=== PATIENT | female | born 1965 | race African-American/Black ===

== ENCOUNTER 2017-04-27 15:45 | Inpatient (IN) ==
[2017-04-27] MEDS ORDERED: NITROGLYCERIN 2% OINT 1 INCH/GM PACK TOP STA (16:32)
[2017-04-27] MEDS ORDERED: ASPIRIN 325 MG TABLET PO STA (16:32)
[2017-04-27] MEDS ORDERED: MORPHINE 2 MG/1 ML SYRINGE IV STA (16:32)
[2017-04-27] MEDS ORDERED: ONDANSETRON 4 MG/2 ML VIAL IV STA (16:32)
[2017-04-27] MEDS ORDERED: FUROSEMIDE 100 MG/10 ML VIAL IV STA (16:32)
[2017-04-27 16:41] LABS: Basophils % 0.6 % (0.0-0.8); Eosinophils # 0.2 10*3/uL (0.0-0.87); Eosinophils % 3.5 % (0.00-10.9); Hematocrit 37.8 VOL% (35.7-47.0); Hemoglobin 12.5 GM/DL (12.0-16.0); Immature Granulocytes % 0.2 %; Immature Granulocytes Absolute 0.01 #; Lymphocytes # 1.9 10*3/uL (1.4-4.0); Lymphocytes % 35.6 % (21.3-54.2); Mean Corpuscular HGB Conc 33.1 GM/DL (32-36); Mean Corpuscular Hemoglobin 29 PG (27-34); Mean Corpuscular Volume 87.9 FL (87-102); Mean Platelet Volume 13.1 FL (9.6-12.0); Monocytes # 0.6 10*3/uL (0.11-0.8); Monocytes % 10.2 % (1.7-12.7); Neutrophils # 2.7 10*3/uL (1.4-7.4); Neutrophils % 49.9 % (38.7-73.9); Platelet Count 148 T/CUMM (130-400); Red Cell Distribution Width 13.1 % (9.3-17.3); White Blood Count 5.4 T/CUMM (4-12)
[2017-04-27] MEDS ORDERED: ONDANSETRON 4 MG/2 ML VIAL ONE (16:49)
[2017-04-27] MEDS ORDERED: FUROSEMIDE 20 MG/2 ML VIAL ONE (16:49)
[2017-04-27] MEDS ORDERED: NITROGLYCERIN 2% OINT 1 INCH/GM PACK TOP ONE (16:49)
[2017-04-27] MEDS ORDERED: ASPIRIN 325 MG TABLET ONE (16:49)
[2017-04-27] MEDS ORDERED: MORPHINE 2 MG/1 ML SYRINGE ONE (16:49)
[2017-04-27] MEDS ORDERED: FUROSEMIDE 40 MG/4 ML VIAL ONE (16:49)
[2017-04-27] MEDS ORDERED: ALBUTEROL 2.5 MG/3 ML NEB RESP TX SCH (17:00)
--- NOTE | 2017-04-27 17:01 | XRay Report ---
History short of breath Comparison 02/28/2016 The heart and vessels are enlarged No consolidative infiltrate is seen. There may be some minimal diffuse pulmonary edema. Impression: Cardiomegaly and vascular congestion with question of minimal interstitial edema PROCEDURE INTERPRETED AT [facility] DEPARTMENT OF RADIOLOGY Final Report Signed by: Dr. Catrina Rojo
[2017-04-27 17:02] LABS: Alanine Aminotransferase 19 U/L (13-56); Albumin 3.3 G/DL (3.4-5.0); Alkaline Phosphatase 95 U/L (45-117); Aspartate Amino Transferase 13 U/L (0-37); Blood Urea Nitrogen 12 MG/DL (7-18); Calcium 8.9 MG/DL (8.5-10.1); Glucose 134 MG/DL (74-106); Magnesium 1.8 MG/DL (1.8-2.4); Osmolality,Calculated 282.3 MOS/KG (273-304); Potassium 3.9 MMOL/L (3.5-5.1); Sodium 141 MMOL/L (136-145); Total Protein 7.6 G/DL (6.4-8.3); Troponin I Only < 0.015 NG/ML (0.00-0.045)
--- NOTE | 2017-04-27 17:17 | Emergency Department Note ---
Carlo Noel Brittany, am scribing for, and in the presence of, Sorin Walters MD 16:17. Selena Noel Charles R, MD, personally performed the services described in this documentation, ascribed by Eunice Matos in my presence, and it is both accurate and complete . Arrival - Arrival Chief Complaint: Shortness of Breath Stated Complaint: asthma,sob,wheezing ED Nursing Triage Note: c/o asthma onset yesterday. +wheezing Mode of Arrival: Ambulatory Limitations: No Limitations Source: Patient, RN Notes Reviewed - History of Present Illness HPI Narrative: Patient is a 52 y/o black female with a history significant for Asthma presenting to the ED with c/o SOB which onset yesterday. Patient reports that she has been having some wheezing and shortness of breath. She denies going outside in the heat today, had just tried to stay in the house and manage current symptoms. She reports that she does take Lasix, but even with this therapy her LLE continues to remain swollen. It is noted that patient has a blood pressure reading of 182/124 mmHg on the monitor. Patient contributes this to not taking her blood pressure medication this morning. Patient has no other complaint/pain in the ED at this time. Patient has a PMHx significant for HTN, Dyslipidemia, Asthma, and Recurrent UTI. Onset (ago): day(s) (1) Consistency: constant Allergies/Adverse Reactions: Allergies Allergy/AdvReac Type Severity Reaction Status Date / Time prednisone Allergy Unknown/Unable Verified 02/28/16 07:41 to obtain Home Medications: Home Medications Medication Instructions Recorded Confirmed Type Albuterol Sulfate [Ventolin HFA] 2 puff INH DAILY 04/27/17 04/27/17 History Allopurinol 300 mg PO DAILY 04/27/17 04/27/17 History Furosemide Tab [Lasix Tab] 40 mg PO DAILY 04/27/17 04/27/17 History Lisinopril 20 mg PO BID 04/27/17 04/27/17 History amLODIPine [Norvasc] 10 mg PO DAILY 04/27/17 04/27/17 History Review of System - Review of System 12 point system: reviewed and no additional remarkable complaints except as stated - Review of System Constitutional: Absent: chills, fever Eyes: Absent: vision change Head/Ears/Nose/Throat: Absent: nasal drainage, sore throat Respiratory: Present: respiratory distress, wheezing Cardiovascular: Absent: chest pain Gastrointestinal: Absent: abdominal pain, nausea, vomiting, diarrhea Genitourinary female: Absent: dysuria, frequency, urgency Musculoskeletal: Absent: arm pain, back pain, leg pain, neck pain Skin: Absent: rash Neurological: Absent: headache Psychiatric: Absent: anxiety, depression Medical,Surgical,& Family Hx - Medical History Cardio: History of: Hypertension Endocrine: History of: Dyslipidemia Respiratory: History of: Asthma Genitourinary: History of: Recurring Urinary Tract Infections - Surgical History Surgical History: noncontributory - Family History Family History: noncontributory - Social History Smoking Status: Never smoker Frequency of Alcohol Use: None Type of Drug Use: None Exam Vital Signs: Vital Signs Temperature 98.9 F 04/27/17 15:49 Pulse Rate 110 H 04/27/17 17:45 Respiratory Rate 18 04/27/17 17:45 Blood Pressure 199/107 04/27/17 15:49 O2 Sat by Pulse Oximetry 100 04/27/17 16:48 - General General appearance: alert, in no apparent distress, obese - Head Head exam: Present: atraumatic, normocephalic, normal inspection - Eye Eye exam: Present: normal appearance, PERRL, EOMI - ENT ENT exam: Present: normal exam, normal oropharynx - Neck Neck exam: Present: normal inspection, full ROM, trachea midline - Chest Chest inspection: Present: normal inspection, symmetric chest wall rise - Respiratory Respiratory exam: Present: accessory muscle use, rales (bilateral), wheezes ( bilateral). Absent: normal lung sounds bilaterally - Cardiovascular Cardiovascular exam: Present: regular rate, normal rhythm, normal heart sounds - Abdominal Exam Abdominal exam: Present: soft, normal bowel sounds. Absent: tenderness - Extremities Exam Extremities exam: Present: pedal edema (+2 edema noted to bilateral lower extremities) - Back Exam Back exam: Present: normal inspection - Neurological Exam Neurological exam: Present: alert, oriented X3, CN II-XII intact. Absent: motor sensory deficit - Psychiatric Psychiatric exam: Present: normal affect, normal mood - Skin Skin exam: Present: warm, dry Course - Reevaluation(s) Reevaluation #1: Patient reevaluated. Patient breathing is still inadequate she has hoarse coarse rhonchi with expiratory wheezing throughout all lung martin there is better airway improvement but still she is in respiratory distress she does not want a Garcia catheter she insists keep going up to the bathroom she understands the dangers of this Time: 18:30 - Consultations Consultation #1: Hospitalist will admit patient Time: 18:29 Results - Labs CBC & BMP: 04/27/17 16:21 04/27/17 16:21 Lab Results: I have reviewed the patients labs Labs: Laboratory Tests 04/27/17 16:21 WBC 5.4 RBC 4.30 Hgb 12.5 Hct 37.8 MCV 87.9 MCH 29 MCHC 33.1 RDW 13.1 Plt Count 148 MPV 13.1 H Neut % (Auto) 49.9 Lymph % (Auto) 35.6 Placer % (Auto) 10.2 Eos % (Auto) 3.5 Baso % (Auto) 0.6 Neut # (Auto) 2.7 Lymph # (Auto) 1.9 Placer # (Auto) 0.6 Eos # (Auto) 0.2 Baso # (Auto) 0.0 Immature Gran % 0.2 Nucleated RBC % 0.0 Immature Gran # 0.01 Nucleated RBCs # 0.00 Laboratory Tests 04/27/17 16:21 D-Dimer, Quantitative 1.3 Laboratory Tests 04/27/17 16:21 Sodium 141 Potassium 3.9 Chloride 104 Carbon Dioxide 30 Anion Gap 10.9 BUN 12 Creatinine 0.80 GFR Calculation 142 BUN/Creatinine Ratio 15.00 Glucose 134 H Calculated Osmolality 282.3 Calcium 8.9 Magnesium 1.8 Total Bilirubin 0.50 AST 13 ALT 19 Alkaline Phosphatase 95 Troponin I < 0.015 Total Protein 7.6 Albumin 3.3 L Globulin 4.3 H Albumin/Globulin Ratio 0.7 L Laboratory Tests 04/27/17 16:21 B-Natriuretic Peptide 66 - Diagnostic Findings Procedure: Chest x-ray: report reviewed by me (Cardiomegaly and vascular congestion with question of minimal interstitial edema.) Critical Care Time Critical Care Time: Yes Total Critical Care Time: 60 Disposition Clinical Impression: Asthma with exacerbation, Acute dyspnea, Morbid obesity Case discussed with: patient, patient's family Disposition: Still a Patient Condition: Guarded Time of Disposition: 18:30
--- NOTE | 2017-04-27 18:24 | CT Report ---
History short of breath and elevated d-dimer 80 cc Omni 350 utilized. Axial images obtained with 2-D multiplanar reconstruction images also stored and interpreted There is a 5 cm mass effect in the left thyroid displacement trachea to the right. There is diffuse enlargement and heterogeneity throughout the thyroid bilaterally. No enlarged mediastinal or hilar nodes are seen. Study is nondiagnostic pulmonary embolus secondary to body habitus and markedly limited contrast bolus. No definite central emboli identified. No pleural effusions present No consolidated infiltrate is seen Impression: 1. Diffuse heterogeneous thyroid enlargement with more focal 5 cm mass effect in the left lobe displacing the trachea to the right 2. Study is nondiagnostic for evaluation of pulmonary embolus. No obvious central emboli seen The CT exam was performed using one or more of the following dose reduction techniques: Automated exposure control, adjustment of the mA and/or kV according to patient size, or use of iterative reconstruction technique. PROCEDURE INTERPRETED AT [facility] DEPARTMENT OF RADIOLOGY Final Report Signed by: Dr. Catrina Rojo
[2017-04-27 18:45] LABS: ABG Base Excess 4.4 MMOL/L (-2.5-2.5); ABG HCO3 30.5 MMOL/L (20-26); ABG Oxygen Saturation 97.2 % (95-100); ABG PCO2 51.7 MM HG (35-48); ABG PH 7.389 (7.35-7.45); ABG PO2 94.2 MM HG (80-95); ABG TCO2 32.1 MMOL/L (23-27); Allen Test Positive
[2017-04-27] MEDS ORDERED: ACETAMINOPHEN 325 MG TABLET PO PRN (19:15)
[2017-04-27] MEDS ORDERED: ALBUTEROL 2.5 MG/3 ML NEB RESP TX PRN (19:15)
[2017-04-27] MEDS ORDERED: ONDANSETRON 4 MG/2 ML VIAL IV PRN (19:15)
[2017-04-27] MEDS ORDERED: MORPHINE 2 MG/1 ML SYRINGE IV PRN (19:15)
[2017-04-27] MEDS ORDERED: hydrALAZINE 20 MG/1 ML VIAL IV PRN (19:31)
--- NOTE | 2017-04-27 19:45 | Hospitalist History & Physical ---
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 A placed on a monitored bed. We will schedule her breathing treatments. We will give her low -dose Solu-Medrol given history of steroid psychosis. She has tolerated 20-40 mg every 12 hours in the past. Continue home meds as appropriate. Schedule her some as needed hydralazine for her hypertension that seems to escalate at times. Will consult Dr. Peterson who is seen her in the past. She has been noncompliant with her CPAP machine has been secondary to losing her tubing. I will order CPAP while she is here. I did find in the old discharge summary her settings. Reevaluate patient in the morning and adjust plans appropriate Current Visit: Yes History of Present Illness Chief complaint: Shortness of breath History of present illness: Ms. Granda is a 52 year old female with past medical history significant for asthma, hypertension, gout, obstructive sleep apnea and morbid obesity who is her normal state of health until approximately 2 days ago. Patient says at that time she started wheezing. She notices it more with exertion. She has a history of asthma. She tried her inhaler with no good results came up to our hospital for further evaluation. Patient was diagnosed with acute exacerbation of her asthma was consulted for admission. She has a history of allergies to prednisone causing hallucinations but has been given IV Solu-Medrol 20 mg to 40 mg every 12 hours without issue. I was consulted to admit her through the emergency room. Home Medications Medication Instructions Recorded Confirmed Type Albuterol Sulfate [Ventolin HFA] 2 puff INH DAILY 04/27/17 04/27/17 History Allopurinol 300 mg PO DAILY 04/27/17 04/27/17 History Furosemide Tab [Lasix Tab] 40 mg PO DAILY 04/27/17 04/27/17 History Lisinopril 20 mg PO BID 04/27/17 04/27/17 History amLODIPine [Norvasc] 10 mg PO DAILY 04/27/17 04/27/17 History Allergies Allergy/AdvReac Type Severity Reaction Status Date / Time prednisone Allergy Unknown/Unable Verified 02/28/16 07:41 to obtain Medical,Surgical,& Family Hx - Medical History Cardio: History of: Hypertension Endocrine: History of: Dyslipidemia Respiratory: History of: Asthma Genitourinary: History of: Recurring Urinary Tract Infections - Surgical History Surgical History: noncontributory (none) - Family History Family History: Reports;: Additional Family History (Asthma) - Social History Smoking Status: Never smoker Frequency of Alcohol Use: None Type of Drug Use: None 12 point system: reviewed and no additional remarkable complaints except as stated Exam - Constitutional Vitals: Period Temp Pulse Resp BP Sys/Ahmadi Pulse Ox Last 24 Hr 98.9 F-98.9 F 96-111 15-26 127-199/69-124 96-100 - General General appearance: alert, in no apparent distress, morbidly obese - Head Head exam: Present: atraumatic, normocephalic, normal inspection - Eye Eye exam: Present: normal appearance, PERRL, EOMI - ENT ENT exam: Present: normal exam, normal oropharynx - Neck Neck exam: Present: Fullness in her neck appreciated, full ROM, trachea midline - Chest Chest inspection: Present: normal inspection, symmetric chest wall rise - Respiratory Respiratory exam: Present: Bilateral wheezing appreciated - Cardiovascular Cardiovascular exam: Present: regular rate, normal rhythm, normal heart sounds - Abdominal Exam Abdominal exam: Present: soft, normal bowel sounds. Absent: tenderness - Extremities Exam Extremities exam: Present: pedal edema (+2 edema noted to bilateral lower extremities) - Back Exam Back exam: Present: normal inspection - Neurological Exam Neurological exam: Present: alert, oriented X3, CN II-XII intact. Absent: motor sensory deficit - Psychiatric Psychiatric exam: Present: normal affect, normal mood - Skin Skin exam: Present: warm, dry Results - Labs CBC & BMP: 04/27/17 16:21 04/27/17 16:21 Labs: Patient had a CT scan performed in our emergency room that showed diffuse thyroid enlargement no obvious pulmonary emboli noted
[2017-04-27] MEDS: ENOXAPARIN 40 MG/0.4 ML SYRINGE SUBCUT SCH (22:33)
[2017-04-27] MEDS: LISINOPRIL 20 MG TABLET PO SCH (22:34)
[2017-04-27] MEDS: methylPREDNISolone SOD SUC 40 MG/1 ML VIAL IV SCH (22:34)
[2017-04-27] MEDS: MONTELUKAST 10 MG TABLET PO SCH (22:34)
[2017-04-28 06:22] LABS: Basophils % 0.2 % (0.0-0.8); Hematocrit 37.3 VOL% (35.7-47.0); Hemoglobin 12.2 GM/DL (12.0-16.0); Immature Granulocytes % 0.5 %; Immature Granulocytes Absolute 0.03 #; Lymphocytes % 15.4 % (21.3-54.2); Mean Corpuscular HGB Conc 32.7 GM/DL (32-36); Mean Corpuscular Hemoglobin 29 PG (27-34); Mean Corpuscular Volume 89.2 FL (87-102); Mean Platelet Volume 12.9 FL (9.6-12.0); Monocytes # 0.2 10*3/uL (0.11-0.8); Monocytes % 3.4 % (1.7-12.7); Neutrophils % 80.5 % (38.7-73.9); Platelet Count 142 T/CUMM (130-400); Red Blood Count 4.18 MC/CUMM (3.8-5.5); Red Cell Distribution Width 13.2 % (9.3-17.3); White Blood Count 6.2 T/CUMM (4-12)
[2017-04-28 06:52] LABS: Calcium 9.3 MG/DL (8.5-10.1); Osmolality,Calculated 286.3 MOS/KG (273-304); Potassium 4.6 MMOL/L (3.5-5.1)
--- NOTE | 2017-04-28 07:49 | Ultrasound Report ---
US thyroid Indication: Enlargement of the thyroid. Comparison: None. Technique: Using transcutaneous probe, routine thyroid ultrasound was performed. Ultrasound images were captured and stored. Findings: The right thyroid lobe measures 5.8 x 3.0 x 2.8 cm. The left thyroid measures 7.4 x 4.3 x 5.6 cm. The isthmus measures approximately 2 cm. Predominantly solid heterogeneous nodule within the left thyroid lobe measures 5.6 x 3.6 x 5.2 cm. This nodule has some punctate echogenic foci as well as predominantly solid in echotexture. Nodule within the thyroid isthmus measures up to 17 mm. Small predominantly subcentimeter thyroid nodules are present within the right thyroid lobe. The largest of these measures slightly larger than a centimeter at 11 mm in greatest dimension. The nodules within the right thyroid lobe are generally hypoechoic to anechoic and demonstrate no distinct calcification. Some of these nodules have suggested intense color flow Impression: 1. Multiple thyroid nodules are demonstrated. The largest lies within the left thyroid lobe. This particular nodules predominant solid with echogenic foci that could reflect small calcifications. This may simply reflect a component of large multinodular goiter, FNA is recommended based on size and punctate echogenicities. 2. Multiple hypoechoic nodules within the right thyroid lobe are small in size, some demonstrating suggestive hyperemic color flow and consideration of nuclear medicine thyroid scan is recommended to exclude hyperfunctioning nodule. 04/28/2017 7:43 AM PROCEDURE INTERPRETED AT [facility] DEPARTMENT OF RADIOLOGY Final Report Signed by: Dr. Amilcar Alanis
--- NOTE | 2017-04-28 08:26 | Hospitalist Progress Note ---
Assessment and Plan - Time spent with patient Time spent with patient: Less than 30 minutes (1) Asthma with exacerbation Status: Acute Assessment and plan: Continuing O2, nebulizer therapy, low-dose corticosteroids, antibiotic therapy. Pulmonary has been consulted to assist with her care. 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 She is on low-dose corticosteroids at this time. Current Visit: Yes (3) Obstructive sleep apnea Status: Chronic Assessment and plan: Continuing her nightly BiPAP. Current Visit: Yes (4) Hypertension Status: Chronic Assessment and plan: Blood pressures been up and down. Will continue current regimen and follow closely. Current Visit: Yes Qualifiers: Hypertension type: essential hypertension Qualified Code(s): I10 - Essential (primary) hypertension (5) Morbid obesity Status: Chronic Assessment and plan: Continuing to encourage increase activity and weight loss. Current Visit: Yes (6) Thyroid enlargement Status: Chronic Current Visit: Yes Hospitalist: Subjective Interval history: Chart reviewed and patient examined. 52-year-old obese black female with a history of asthma, hypertension, gout, obstructive sleep apnea who had a 2 day history of increasing shortness of breath with associated wheezing. She is now been admitted with acute exacerbation. Today she states that she continues with shortness of breath and wheeze. She is tolerating the steroids. She has a cough with minimal clear sputum production. Exam - Constitutional Vitals: Period Temp Pulse Resp BP Sys/Ahmadi Pulse Ox Last 24 Hr 97.0 F-98.9 F 96-111 15-26 98-199/53-124 93-100 General appearance: no acute distress - Head Head exam: Present: normocephalic, atraumatic - Eye Eye exam: Present: EOMI Pupils: Present: KAMINI - ENT ENT exam: Present: normal oropharynx - Neck Neck exam: Present: normal inspection - Respiratory Respiratory exam: Present: other (Distant breath sounds with occasional faint end expiratory wheeze) - Cardiovascular Cardiovascular exam: Present: regular rate and rhythm - GI/Abdominal GI/Abdominal exam: Present: normal bowel sounds, soft. Absent: tenderness, rebound - Extremities Exam Extremities exam: Absent: calf tenderness - Back Exam Back exam: Present: normal inspection - Neurological Exam Neurological exam: Present: alert, oriented X3, CN II-XII intact. Absent: motor sensory deficit - Psychiatric Psychiatric exam: Present: normal affect, normal mood. Absent: agitated, anxious - Skin Skin exam: Present: warm, dry. Absent: erythema Results - Labs CBC & BMP: 04/28/17 06:01 04/28/17 06:00 Lab Results: I have reviewed the past 24 hour labs
[2017-04-28] MEDS ORDERED: DEXTROSE 50% 25 GM/50 ML VIAL IV PRN (08:30)
[2017-04-28] MEDS ORDERED: GLUCAGON 1 MG VIAL IM PRN (08:30)
[2017-04-28] MEDS: methylPREDNISolone SOD SUC 40 MG/1 ML VIAL IV SCH (08:44)
[2017-04-28] MEDS: ALLOPURINOL 300 MG TABLET PO SCH (08:47)
[2017-04-28] MEDS: FUROSEMIDE 40 MG TABLET PO SCH (08:47)
[2017-04-28] MEDS: LISINOPRIL 20 MG TABLET PO SCH ×2 (08:47→20:54)
[2017-04-28] MEDS: amLODIPine 10 MG TABLET PO SCH (08:47)
[2017-04-28] MEDS: PANTOPRAZOLE 40 MG TABLET PO SCH (08:47)
--- NOTE | 2017-04-28 09:14 | Physician Query Form ---
CLICK EDIT DOCUMENT TO SELECT QUERY ANSWER --> OK --> SIGN Luana Alanis RN, CCDS Certified Clinical Janitor Supervisor W) [phone] (f) [phone] [email or web address] PROVIDERS: Make your selection(s) from the choices in EACH section by typing an "x" and enter comments in the comment section. Please use your independent medical judgment in providing your response. This request does not imply that any particular answer is desired or expected. CLINICAL INDICATORS: (Providers should not edit this section) The medical record indicates that the patient was admitted with asthma exacerbation and the patient is on Proventil, Solumedrol. Based on documentation of Asthma, can you please provide further specificity regarding the diagnosis? ( x) Mild intermittent extrinsic asthma with acute exacerbation ( ) Mild persistent extrinsic asthma with acute exacerbation ( ) Moderate persistent extrinsic asthma with acute exacerbation ( ) Severe persistent extrinsic asthma with acute exacerbation ( ) Mild intermittent extrinsic asthma with status asthmaticus ( ) Mild persistent extrinsic asthma with status asthmaticus ( ) Moderate persistent extrinsic asthma with status asthmaticus ( ) Severe intermittent extrinsic asthma with status asthmaticus ( ) Other, please specify: ( ) Clinically unable to determine COMMENTS: PLEASE ALSO DOCUMENT RESPONSE IN PROGRESS NOTES AND/OR DISCHARGE SUMMARY Use of terms such as suspected, likely, or probable (associated with a specific diagnosis that is being evaluated, monitored, or treated as if it exists) are acceptable and can be restated in the discharge summary if not ruled out. MTDD
--- NOTE | 2017-04-28 09:31 | Pulmonology Consult Note ---
Assessment and Plan (1) Asthma with exacerbation Status: Acute Assessment and plan: Today I do not hear any asthma. I will go this long on the steroids as possible as she has had problems with those before. I am not clear whether she has any tracheal compromise by her substernal goiter but I do not think that she does. I do think we need to have an endocrine evaluation Current Visit: Yes (2) Morbid obesity Status: Chronic Assessment and plan: Certainly needs long-term weight loss. Using her CPAP regularly may help her to do that. Current Visit: Yes (3) Thyroid enlargement Status: Chronic Assessment and plan: Large substernal goiter with thyroid nodules. May need needle biopsy. Again I would suggest an endocrine evaluation. May need to go to [place] for that. Current Visit: Yes (4) Obstructive sleep apnea Status: Chronic Assessment and plan: We will ask sleep services to see. Her CPAP machine is not being used. Current Visit: Yes (5) Obesity hypoventilation syndrome Status: Acute Assessment and plan: PCO2 is 51 on room air. This along with her physical findings indicates that she does indeed have obesity hypoventilation syndrome. This is best treated with weight loss and use of her CPAP at night. Also need to be sure she is not hypothyroid Current Visit: Yes History of Present Illness Chief complaint: Cough shortness of breath History of present illness: Ms. Granda is a 52 year old female who has asthma. She developed a cough and congestion going on for about 3 days and she came to the emergency room yesterday and was admitted. She is a non-smoker. She has a long history of asthma. She has been on inhaled steroids in the past. I have seen her in the hospital on several admissions I do not think of seeing her in the clinic. She also has obstructive sleep apnea but says she has lost part of her equipment and has not used it for about 6 months. She has continuously gained weight. She now weighs about 25 pounds more than she did when she was here in 2011. Her weight is up to 345. In addition her x-ray and CT findings indicate a large substernal goiter with nodules. She may need to have a needle biopsy. She may need to be seen by an copper plate lithographer. I have ordered a TSH. Her trachea is somewhat tortuous but does not appear to be extrinsically compressed significantly. Home Medications Medication Instructions Recorded Confirmed Type Albuterol Sulfate [Ventolin HFA] 2 puff INH DAILY 04/27/17 04/27/17 History Furosemide Tab [Lasix Tab] 40 mg PO DAILY 04/27/17 04/27/17 History RX: Allopurinol 300 mg PO DAILY 04/27/17 04/27/17 History RX: Lisinopril 20 mg PO BID 04/27/17 04/27/17 History amLODIPine [Norvasc] 10 mg PO DAILY 04/27/17 04/27/17 History Allergies Allergy/AdvReac Type Severity Reaction Status Date / Time prednisone Allergy Unknown/Unable Verified 02/28/16 07:41 to obtain - Constitutional Constitutional: Present: fatigue, fever(s) - EENT Nose, mouth and throat: Present: nasal congestion - Cardiovascular Cardiovascular: Present: dyspnea, dyspnea on exertion, edema - Respiratory Respiratory: Present: cough, dyspnea, dyspnea on exertion, wheezing Exam (Pulmonay) H&P - Constitutional Vitals: Period Temp Pulse Resp BP Sys/Ahmadi Pulse Ox Last 24 Hr 97.0 F-98.9 F 96-111 15-26 98-199/53-124 93-100 Exam: Patient is alert. Vital signs normal. Weight is 157 kg. Pupils react to light. Throat is clear. Neck is supple. I do not feel a goiter in her neck I think it must all be substernal. Chest reveals prolonged expiratory phase. She does not have any wheezing. Heart normal rate and rhythm no murmurs. Abdomen soft nontender no masses. Unable to palpate abdominal organs due to obesity. Extremities no clubbing or cyanosis. She has a trace of edema. Calves nontender. Medical,Surgical,& Family Hx - Medical History Cardio: History of: Hypertension Endocrine: History of: Dyslipidemia Respiratory: History of: Asthma Genitourinary: History of: Recurring Urinary Tract Infections Gastrointestinal: No history of: Gastrointestinal Bleed - Surgical History Thoracic Surgeries: Patient denies;: Organ Transplant HEENT Surgeries: Patient denies: Tonsilectomy & Adenoidectomy - Family History Family History: Reports;: Family Hypertension, Additional Family History (Asthma ) - Social History Smoking Status: Never smoker Frequency of Alcohol Use: None Type of Drug Use: None Results - Labs CBC & BMP: 04/28/17 06:01 04/28/17 06:00 Lab Results: I have reviewed the past 24 hour labs - Diagnostic Findings Procedure: Chest x-ray: image reviewed by me (No acute infiltrates. Slightly increased interstitial markings may be because of the technique of the film.), CT - chest: image reviewed by me (Large substernal goiter with nodules. No acute infiltrates. No pulmonary emboli)
[2017-04-28] MEDS: INSULIN REGULAR 100 UNIT/ML SUBCUT SCH ×3 (12:29→22:33)
--- NOTE | 2017-04-28 12:49 | Sleep Medicine Consult ---
Assessment and Plan (1) Obstructive sleep apnea Status: Chronic Assessment and plan: This patient has not been seen in sleep clinic for several years. She needs to get compliant with CPAP. Her machine is still functional by her report. We need to get her family to bring her machine up here so that we can check it and get a download. Given her weight gain, I think it would be beneficial to put her on an auto titration CPAP tonight and ascertain best pressure and reset her machine. She will then need follow-up in the sleep clinic after discharge. I expressed the importance of compliance and follow-up in the sleep clinic. Current Visit: Yes (2) Hypertension Status: Chronic Assessment and plan: The prevalence rate for obstructive sleep apnea patients with hypertension is 35 %. That rate can be as high as 80% in patients who require 4 or more medications for blood pressure control. Current Visit: Yes Qualifiers: Hypertension type: essential hypertension Qualified Code(s): I10 - Essential (primary) hypertension (3) Morbid obesity Status: Chronic Assessment and plan: Patient encouraged to continue to work on weight loss thru appropriate dieting and exercise. The combination of weight loss and CPAP therapy for obstructive sleep apnea is better than either therapy alone for obstructive sleep apnea. Current Visit: Yes History of Present Illness Chief complaint: Sleep apnea History of present illness: Ms. Granda is a 52 year old female diagnosed with obstructive sleep apnea in 2007. She had an AHI at that time of 14.5. She underwent CPAP titration and 2012 and was placed on 7 cm of CPAP. She has been noncompliant with her CPAP and has gained significant weight since that time. She has been admitted for asthma exacerbation. She does continue to have problems with snoring and abnormal breathing during sleep. She will awaken from sleep short of breath. She is bothered by nocturia and gets up frequently to go to the bathroom. She has significant daytime fatigue and sleepiness, having an Roosevelt sleepiness score of 14 and a stop bang score of 7. Home Medications Medication Instructions Recorded Confirmed Type Albuterol Sulfate [Ventolin HFA] 2 puff INH DAILY 04/27/17 04/27/17 History Allopurinol 300 mg PO DAILY 04/27/17 04/27/17 History Furosemide Tab [Lasix Tab] 40 mg PO DAILY 04/27/17 04/27/17 History Lisinopril 20 mg PO BID 04/27/17 04/27/17 History amLODIPine [Norvasc] 10 mg PO DAILY 04/27/17 04/27/17 History Allergies Allergy/AdvReac Type Severity Reaction Status Date / Time prednisone Allergy Unknown/Unable Verified 02/28/16 07:41 to obtain Review of systems: Otherwise unremarkable from a sleep medicine standpoint. Exam (Pulmonay) H&P - Constitutional Vitals: Period Temp Pulse Resp BP Sys/Ahmadi Pulse Ox Last 24 Hr 97.0 F-98.9 F 96-111 15-26 98-199/53-124 93-100 Exam: She is alert and responsive in no acute distress. Pupils equal round reactive to light and accommodation. Extraocular movements intact. Oropharynx with a class III Mallampati exam with 1+ tonsillar enlargement. Neck is supple without adenopathy or thyromegaly. No supraclavicular adenopathy is noted. Chest with symmetrical breath sounds with mild expiratory wheeze. Cardiac exam reveals a regular rhythm without murmur or gallop. Abdomen obese nontender without palpable hepatosplenomegaly or mass. Extremities are without clubbing, cyanosis, or edema. Neurologically, she is grossly intact. She moves all extremities with good strength and answers all questions appropriately. Medical,Surgical,& Family Hx - Medical History Cardio: History of: Hypertension Endocrine: History of: Dyslipidemia Respiratory: History of: Asthma Genitourinary: History of: Recurring Urinary Tract Infections Gastrointestinal: No history of: Gastrointestinal Bleed - Surgical History Thoracic Surgeries: Patient denies;: Organ Transplant HEENT Surgeries: Patient denies: Tonsilectomy & Adenoidectomy - Family History Family History: Reports;: Family Hypertension, Additional Family History (Asthma ) - Social History Smoking Status: Never smoker Frequency of Alcohol Use: None Type of Drug Use: None Results - Labs CBC & BMP: 04/28/17 06:01 04/28/17 06:00 Lab Results: I have reviewed the past 24 hour labs
[2017-04-28] MEDS: MONTELUKAST 10 MG TABLET PO SCH (20:54)
[2017-04-28] MEDS: ENOXAPARIN 40 MG/0.4 ML SYRINGE SUBCUT SCH (20:54)
--- NOTE | 2017-04-29 07:40 | Pulmonology Progress Note ---
Pulmonary - PN: Subj Interval history: This 52-year-old lady has asthma and came in with an exacerbation. She has obesity hypoventilation syndrome and obstructive sleep apnea. She is not wheezing. Asthma is well controlled. Can stop steroids. In addition she has a large substernal goiter that needs further evaluation. I would suggest sending her to an cable cutter and swager in [place]. Exam (Progress Note) - Constitutional Vitals: Period Temp Pulse Resp BP Sys/Ahmadi Pulse Ox Last 24 Hr 97.0 F-97.5 F 62-92 16-20 125-161/65-95 90-95 Exam: Patient's alert and oriented. Vital signs are normal. Pupils react to light. Throat is clear. Neck supple no bruits. Chest no wheezing. Slightly prolonged expiratory phase. Heart normal rate rhythm no murmurs. Abdomen obese unable to palpate abdominal organs. Extremities no clubbing cyanosis edema. Calves nontender Results - Labs CBC & BMP: 04/28/17 06:01 04/28/17 06:00 Lab Results: I have reviewed the past 24 hour labs Assessment and Plan (1) Asthma with exacerbation Status: Acute Assessment and plan: Today I do not hear any asthma. I will go this long on the steroids as possible as she has had problems with those before. I am not clear whether she has any tracheal compromise by her substernal goiter but I do not think that she does. I do think we need to have an endocrine evaluation 04/29/2017 no bronchospasm. Will discontinue Solu-Medrol. Current Visit: Yes (2) Morbid obesity Status: Chronic Assessment and plan: Certainly needs long-term weight loss. Using her CPAP regularly may help her to do that. 04/29/2017 again needs long-term weight loss and management of obstructive sleep apnea. Current Visit: Yes (3) Thyroid enlargement Status: Chronic Assessment and plan: Large substernal goiter with thyroid nodules. May need needle biopsy. Again I would suggest an endocrine evaluation. May need to go to [place] for that. Current Visit: Yes (4) Obstructive sleep apnea Status: Chronic Assessment and plan: We will ask sleep services to see. Her CPAP machine is not being used. 04/29/2017 using CPAP at night. Appreciate Dr. Marcelo's input. Current Visit: Yes (5) Obesity hypoventilation syndrome Status: Acute Assessment and plan: PCO2 is 51 on room air. This along with her physical findings indicates that she does indeed have obesity hypoventilation syndrome. This is best treated with weight loss and use of her CPAP at night. Also need to be sure she is not hypothyroid 04/29/2017 again long-term weight loss. Current Visit: Yes
[2017-04-29] MEDS: INSULIN REGULAR 100 UNIT/ML SUBCUT SCH ×4 (07:56→21:41)
[2017-04-29] MEDS: MOMETASONE 220 MCG/PUFF INHALER 14 DOSE INH SCH (08:41)
[2017-04-29] MEDS: ALLOPURINOL 300 MG TABLET PO SCH (08:45)
[2017-04-29] MEDS: FUROSEMIDE 40 MG TABLET PO SCH (08:45)
[2017-04-29] MEDS: LISINOPRIL 20 MG TABLET PO SCH ×2 (08:45→21:27)
[2017-04-29] MEDS: amLODIPine 10 MG TABLET PO SCH (08:45)
[2017-04-29] MEDS: PANTOPRAZOLE 40 MG TABLET PO SCH (08:45)
[2017-04-29] MEDS ORDERED: methylPREDNISolone SOD SUC 40 MG/1 ML VIAL IV SCH (09:00)
--- NOTE | 2017-04-29 11:34 | Hospitalist Progress Note ---
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 Reports that she feels better. Still with some sob with exertion, reports some associated wheezing. Probable discharge tomorrow Exam - Constitutional Vitals: Period Temp Pulse Resp BP Sys/Ahmadi Pulse Ox Last 24 Hr 97.0 F-97.6 F 62-92 16-20 125-161/65-90 90-95 General appearance: over weight - Head Head exam: Present: normocephalic - Eye Eye exam: Present: EOMI Pupils: Present: KAMINI - ENT ENT exam: Present: normal exam - Neck Neck exam: Present: normal inspection - Respiratory Respiratory exam: Present: clear to auscultation bilaterally - Cardiovascular Cardiovascular exam: Present: regular rate and rhythm - GI/Abdominal GI/Abdominal exam: Present: normal bowel sounds, soft. Absent: tenderness, rebound - Extremities Exam Extremities exam: Present: normal inspection - Back Exam Back exam: Present: normal inspection - Neurological Exam Neurological exam: Present: alert, oriented X3 - Psychiatric Psychiatric exam: Present: normal affect, normal mood - Skin Skin exam: Present: warm, intact Results - Labs CBC & BMP: 04/28/17 06:01 04/28/17 06:00
--- NOTE | 2017-04-29 16:42 | Sleep Medicine Progress Note ---
Assessment and Plan (1) Obstructive sleep apnea Status: Chronic Assessment and plan: We will download her CPAP device and have her machine set at best pressure prior to discharge tomorrow. Follow-up will be in sleep clinic. Current Visit: Yes (2) Hypertension Status: Chronic Current Visit: Yes Qualifiers: Hypertension type: essential hypertension Qualified Code(s): I10 - Essential (primary) hypertension (3) Morbid obesity Status: Chronic Current Visit: Yes Sleep Medicine Subjective Interval history: Patient did well with CPAP last night. She was placed on auto titration CPAP and slept with it over 7 hours. She had good control with an average device EPAP of 9.6 cm with an average AHI of 3.9. She did bring her CPAP machine in and we need to get a download from it and see what pressure she is on. She will need follow-up in the sleep clinic after discharge. Exam (Progress Note) - Constitutional Vitals: Period Temp Pulse Resp BP Sys/Ahmadi Pulse Ox Last 24 Hr 96.5 F-98.5 F 74-92 16-20 125-148/65-90 90-95 Results - Labs CBC & BMP: 04/28/17 06:01 04/28/17 06:00 Lab Results: I have reviewed the past 24 hour labs
[2017-04-29] MEDS: ENOXAPARIN 40 MG/0.4 ML SYRINGE SUBCUT SCH (21:27)
[2017-04-29] MEDS: MONTELUKAST 10 MG TABLET PO SCH (21:27)
[2017-04-30] MEDS: INSULIN REGULAR 100 UNIT/ML SUBCUT SCH ×2 (08:02→11:30)
--- NOTE | 2017-04-30 08:25 | Pulmonology Progress Note ---
Pulmonary - PN: Subj Interval history: This 52-year-old lady has asthma and came in with an exacerbation. She has obesity hypoventilation syndrome and obstructive sleep apnea. She is not wheezing. Asthma is well controlled. Can stop steroids. In addition she has a large substernal goiter that needs further evaluation. I would suggest sending her to an admissions evaluator in [place]. 04/30/2017 patient's asthma much improved. Could be discharged on oral medications. She is off prednisone. Needs to be on Asmanex. Needs albuterol for as needed use. Her TSH is still pending. We need to see that before she is discharged as she may need some medication for her thyroid. May well be hypothyroid. In addition she needs to see an admissions evaluator in [place]. Probably needs needle biopsy of thyroid nodule. She has extensive substernal thyroid which may at some point cough respiratory embarrassment by compressing her trachea. Does not appear to be doing that as yet. She also will need follow-up at sleep lab to get her home CPAP treatment managed. Exam (Progress Note) - Constitutional Vitals: Period Temp Pulse Resp BP Sys/Ahmadi Pulse Ox Last 24 Hr 96.5 F-98.5 F 74-84 20-22 119-167/58-93 93-97 Exam: Patient's alert and oriented. Vital signs are normal. Pupils react to light. Throat is clear. Neck supple no bruits. Chest no wheezing. Slightly prolonged expiratory phase. Heart normal rate rhythm no murmurs. Abdomen obese unable to palpate abdominal organs. Extremities no clubbing cyanosis edema. Calves nontender. Overall sounds much better since admission. Results - Labs CBC & BMP: 04/28/17 06:01 04/28/17 06:00 Lab Results: I have reviewed the past 24 hour labs Assessment and Plan (1) Asthma with exacerbation Status: Acute Assessment and plan: Today I do not hear any asthma. I will go this long on the steroids as possible as she has had problems with those before. I am not clear whether she has any tracheal compromise by her substernal goiter but I do not think that she does. I do think we need to have an endocrine evaluation 04/29/2017 no bronchospasm. Will discontinue Solu-Medrol. 04/30/2017 lungs are clear. Does not need steroids. Needs to stay on Asmanex long-term 1 puff daily. Needs albuterol inhaler for as needed use. I will follow in the office. I have not seen her for the last 3 years Current Visit: Yes (2) Morbid obesity Status: Chronic Assessment and plan: Certainly needs long-term weight loss. Using her CPAP regularly may help her to do that. 04/29/2017 again needs long-term weight loss and management of obstructive sleep apnea. Current Visit: Yes (3) Thyroid enlargement Status: Chronic Assessment and plan: Large substernal goiter with thyroid nodules. May need needle biopsy. Again I would suggest an endocrine evaluation. May need to go to [place] for that. 04/30/2017 multinodular goiter which is primarily substernal. Await TSH to decide if she needs thyroid replacement or suppression. Needs appointment with admissions evaluator in [place]. Suggested Dr. Martinez. Current Visit: Yes (4) Obstructive sleep apnea Status: Chronic Assessment and plan: We will ask sleep services to see. Her CPAP machine is not being used. 04/29/2017 using CPAP at night. Appreciate Dr. Marcelo's input. 04/30/2017 Dr. Marcelo will follow in the sleep clinic. Current Visit: Yes (5) Obesity hypoventilation syndrome Status: Acute Assessment and plan: PCO2 is 51 on room air. This along with her physical findings indicates that she does indeed have obesity hypoventilation syndrome. This is best treated with weight loss and use of her CPAP at night. Also need to be sure she is not hypothyroid 04/29/2017 again long-term weight loss. 04/30/2017 weight loss and use of CPAP or BiPAP at bedtime are primary measures for this. Current Visit: Yes
--- NOTE | 2017-04-30 08:36 | Discharge Summary ---
<Anton Rosas - Last Filed: 04/30/17 08:14> Hospital Course - Hospital Course Hospital Course: Ms. Granda is a 52 yr old morbidly obese black female with a history of asthma , MERI, htn, and gout that presented to the ED on 04/27 with complaints of wheezing and shortness of breath with exertion. Pt. reported using her inhaler but to no avail. She came to the ED for further evaluation. She was found to be in acute asthma exacerbation and was admitted for treatment. Pt. has an allergy to some steroids and reported prednisone causing hallucinations so the administration of IV solu-medrol was monitored closely. In addition to the steroid treatment, patient also received breathing treatment. Because of her problems with MERI and asthma, both pulmonary and Sleep Center were consulted. Dr. Marcelo evaluated the patient for MERI. Pt. was noted to be noncompliant with CPAP and had not been seen for years in clinic. Pt. was started on cpap in hospital and settings were titrated. She tolerated them well. Pt. began to feel better. Steroids were discontinued and oxygen was weaned. On CT chest patient was incidentally noted to have diffuse thyroid enlargement with displacement of her trachea. Thyroid ultrasound was performed which demonstrated multiple thyroid nodules. Her tsh and free t4 are both within normal limits. She will need to follow-up with an sales exhibitor outpatient. She will also follow-up with Dr. Peterson outpatient. Today, patient is stable for discharge. Pt. has been instructed to follow up with sleep center after discharge. Specialty Discharge - Follow Up or Referrals Follow up with: Brennon Peterson MD [Physician] - 06/29/17 12:30 pm Discharge Plan - Discharge Data Disposition: Disch To Home/Self Care - Discharge Medications New Mometasone Inhaler [Asmanex HFA 200 mcg] 220 mcg INH DAILY #1 inhaler Montelukast Tab [Singulair Tab] 10 mg PO BEDTIME #30 tablet Continue Furosemide Tab [Lasix Tab] 40 mg PO DAILY Allopurinol 300 mg PO DAILY amLODIPine [Norvasc] 10 mg PO DAILY Lisinopril 20 mg PO BID Albuterol Sulfate [Ventolin HFA] 2 puff INH Q4H PRN PRN Reason: shortness of breath - Follow Up or Referral Follow Up: Brennon Peterson MD [Physician] - 06/29/17 12:30 pm - Forms/Instructions Exam - Constitutional Vitals: Period Temp Pulse Resp BP Sys/Ahmadi Pulse Ox Last 24 Hr 96.5 F-98.5 F 74-84 18-22 119-167/58-93 93-97 Discharge Results Procedures and tests throughout hospitalization: Pending Orders 04/27/17 16:54 Blood Culture Stat 04/28/17 06:00 TSH, Sensitive, S Routine Labs on day of discharge: Labs from last 24 hours 04/30/17 04/30/17 04/29/17 09:51 07:19 21:37 POC Glucose 117 H 137 H Free T4 1.16 TSH 3rd Generation 1.440 04/29/17 04/29/17 15:52 11:15 POC Glucose 173 H 106 Free T4 TSH 3rd Generation Preliminary micro results at discharge 04/27/17 16:54 Blood Culture - Preliminary Blood No growth at 1 day 04/27/17 16:54 Blood Culture - Preliminary Blood No growth at 1 day DS: Provider Date of admission: 04/27/17 19:16 Primary care physician: . No PCP Attending physician on admission: Dat Doan MD Consults: 04/27/17 19:15 Consult to Physician [CONS] Routine Comment: Consulting Provider: Consult to Specialist Group: Pulmonology Consult to Physician [CONS] Routine Comment: patient known to you Consulting Provider: Brennon Peterson 04/28/17 09:35 Consult to Sleep Center [CONS] Routine Reason for Sleep Center: Sleep Center Physician Consult Comment: MERI, OHS, noncompliant with CPAP Discharging clinician: Anton Rosas NP <Tanvir Mercado - Last Filed: 04/30/17 11:14> Hospital Course - Time spent with patient Time with patient DS: Greater than 30 minutes (35) Diagnosis - Discharge Diagnosis (1) Asthma with exacerbation Status: Resolved (2) Morbid obesity Status: Chronic (3) Thyroid enlargement Status: Acute (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 (5) Obstructive sleep apnea Status: Chronic Discharge Plan - Discharge Data Condition at Discharge: Stable Discharge Diet: advance to your usual diet Activity: increase activity as tolerated Hygiene: no restrictions Weight Bearing at Discharge: weight bear as tolerated Driving: no restrictions Contact your physician if you experience:: fever over 101, Shortness of breath Exam - Constitutional General appearance: over weight - Head Head exam: Present: normocephalic, atraumatic - Eye Eye exam: Present: EOMI Pupils: Present: KAMINI - ENT ENT exam: Present: normal exam - Neck Neck exam: Present: normal inspection - Respiratory Respiratory exam: Present: clear to auscultation bilaterally - Cardiovascular Cardiovascular exam: Present: regular rate and rhythm - GI/Abdominal GI/Abdominal exam: Present: normal bowel sounds - Extremities Exam Extremities exam: Present: normal inspection - Back Exam Back exam: Present: normal inspection - Neurological Exam Neurological exam: Present: alert, oriented X3 - Psychiatric Psychiatric exam: Present: normal affect, normal mood - Skin Skin exam: Present: warm, intact
[2017-04-30] MEDS: ALLOPURINOL 300 MG TABLET PO SCH (09:31)
[2017-04-30] MEDS: LISINOPRIL 20 MG TABLET PO SCH (09:31)
[2017-04-30] MEDS: amLODIPine 10 MG TABLET PO SCH (09:31)
[2017-04-30] MEDS: MOMETASONE 220 MCG/PUFF INHALER 14 DOSE INH SCH (09:31)
[2017-04-30] MEDS: PANTOPRAZOLE 40 MG TABLET PO SCH (09:31)
[2017-04-30] MEDS: FUROSEMIDE 40 MG TABLET PO SCH (09:31)
[2017-04-30 10:39] LABS: Free T4 (Free Thyroxine) 1.16 NG/DL (0.76-1.46); Thyroid Stimulating Hormone 1.44 uIU/ml (0.358-3.74)
--- NOTE | 2017-04-30 13:01 | Sleep Medicine Progress Note ---
Assessment and Plan (1) Obstructive sleep apnea Status: Chronic Assessment and plan: Patient will be set up for reevaluation of her sleep apnea and follow-up will be in sleep clinic. Thank you for sleep consult. Current Visit: Yes (2) Hypertension Status: Chronic Current Visit: Yes Qualifiers: Hypertension type: essential hypertension Qualified Code(s): I10 - Essential (primary) hypertension (3) Morbid obesity Status: Chronic Current Visit: Yes Sleep Medicine Subjective Interval history: Patient slept only about 2 hours last night with CPAP. She did okay with it when she used it. She will be set up for reevaluation of her obstructive sleep apnea and sleep clinic. Exam (Progress Note) - Constitutional Vitals: Period Temp Pulse Resp BP Sys/Ahmadi Pulse Ox Last 24 Hr 96.5 F-97.8 F 74-84 18-22 119-167/58-93 94-97 Exam: She is alert and responsive in no acute distress. She has a class III Mallampati exam with 1+ tonsillar enlargement. Chest with good air movement and no focal wheeze, rhonchi, or rales. Cardiac exam reveals a regular rhythm without murmur or gallop. Abdomen obese nontender extremities with trace edema. Results - Labs CBC & BMP: 04/28/17 06:01 04/28/17 06:00 Lab Results: I have reviewed the past 24 hour labs Specialty Discharge - Follow Up or Referrals Follow up with: Brennon Peterson MD [Physician] - 06/29/17 12:30 pm
[2017-04-30 13:43] VITALS: BP 135/74
== END 2017-04-30 14:50 | disposition home or self-care (01) | DRG 202 ==
LOC: N.ED 15:45 → N.EDINP 19:16 → SUATTDRO 19:16 → N.2E 20:52
PROVIDERS: ADMIT Internal Medicine; ATTEND Internal Medicine

== ENCOUNTER 2017-08-15 07:00 | Inpatient (IN) ==
[2017-08-15] MEDS ORDERED: methylPREDNISolone SOD SUC 40 MG/1 ML VIAL IV STA (07:26)
[2017-08-15] MEDS ORDERED: LEVOFLOXACIN INJ 750 MG in PREMIX 1 EACH IV STA (07:26)
[2017-08-15] MEDS ORDERED: ALBUTEROL 2.5 MG/3 ML NEB RESP TX STA (07:26)
[2017-08-15] MEDS ORDERED: methylPREDNISolone SOD SUC 125 MG/2 ML VIAL ONE (07:30)
[2017-08-15] MEDS ORDERED: LEVOFLOXACIN INJ 150 ML IV ONE (07:42)
[2017-08-15 07:55] LABS: Basophils % 0.3 % (0.0-0.8); Eosinophils % 0.5 % (0.00-10.9); Hematocrit 39.5 VOL% (35.7-47.0); Hemoglobin 13.1 GM/DL (12.0-16.0); Immature Granulocytes % 0.3 %; Immature Granulocytes Absolute 0.01 #; Lymphocytes # 1.3 10*3/uL (1.4-4.0); Lymphocytes % 33.7 % (21.3-54.2); Mean Corpuscular HGB Conc 33.2 GM/DL (32-36); Mean Corpuscular Hemoglobin 29 PG (27-34); Mean Corpuscular Volume 88.6 FL (87-102); Mean Platelet Volume 12.7 FL (9.6-12.0); Monocytes # 0.5 10*3/uL (0.11-0.8); Monocytes % 12.8 % (1.7-12.7); Neutrophils % 52.4 % (38.7-73.9); Platelet Count 154 T/CUMM (130-400); Red Blood Count 4.46 MC/CUMM (3.8-5.5); Red Cell Distribution Width 13.1 % (9.3-17.3); White Blood Count 3.8 T/CUMM (4-12)
[2017-08-15 08:16] LABS: Alanine Aminotransferase 16 U/L (13-56); Albumin 3.4 G/DL (3.4-5.0); Alkaline Phosphatase 82 U/L (45-117); Aspartate Amino Transferase 23 U/L (0-37); Blood Urea Nitrogen 15 MG/DL (7-18); Calcium 8.7 MG/DL (8.5-10.1); Glucose 113 MG/DL (74-106); Osmolality,Calculated 282.3 MOS/KG (273-304); Potassium 3.7 MMOL/L (3.5-5.1); Sodium 141 MMOL/L (136-145); Total Protein 8.1 G/DL (6.4-8.3); Troponin I Only < 0.015 NG/ML (0.00-0.045)
[2017-08-15] MEDS ORDERED: ALBUTEROL/IPRATROPIUM 3 ML NEB RESP TX STA (09:16)
[2017-08-15] MEDS: TERBUTALINE 1 MG/1 ML VIAL SUBCUT SCH ×2 (09:30→11:13)
[2017-08-15] MEDS ORDERED: TERBUTALINE 1 MG/1 ML VIAL SUBCUT ONE (09:40)
[2017-08-15] MEDS ORDERED: ZALEPLON 5 MG CAPSULE PO PRN (10:18)
[2017-08-15] MEDS ORDERED: ONDANSETRON 4 MG/2 ML VIAL IV PRN (10:18)
[2017-08-15] MEDS: DEXTROSE 5% NACL 0.9% 1,000 ML IV SCH ×2 (11:00→18:27)
[2017-08-15] MEDS: LISINOPRIL 20 MG TABLET PO SCH ×2 (11:04→20:18)
[2017-08-15] MEDS: ALLOPURINOL 100 MG TABLET PO SCH (11:04)
[2017-08-15] MEDS: amLODIPine 10 MG TABLET PO SCH (11:04)
[2017-08-15] MEDS: PANTOPRAZOLE 40 MG TABLET PO SCH (11:05)
[2017-08-15] MEDS: DOCUSATE SODIUM 100 MG CAPSULE PO PRN (11:05)
[2017-08-15] MEDS: ALBUTEROL 1.25 MG/3 ML NEB RESP TX SCH ×3 (11:47→19:11)
[2017-08-15] MEDS: ENOXAPARIN 40 MG/0.4 ML SYRINGE SUBCUT SCH (12:06)
[2017-08-15] MEDS: AZITHROMYCIN INJ 500 MG in SODIUM CHLORIDE 0.9% 250 ML IV SCH (12:06)
[2017-08-15] MEDS: methylPREDNISolone SOD SUC 40 MG/1 ML VIAL IV SCH (15:51)
[2017-08-15] MEDS: MONTELUKAST 10 MG TABLET PO SCH (20:18)
[2017-08-16] MEDS: methylPREDNISolone SOD SUC 40 MG/1 ML VIAL IV SCH ×3 (00:11→20:49)
[2017-08-16] MEDS: ALBUTEROL 1.25 MG/3 ML NEB RESP TX SCH ×6 (00:20→19:50)
[2017-08-16] MEDS: DEXTROSE 5% NACL 0.9% 1,000 ML IV SCH (05:19)
[2017-08-16 08:08] LABS: Calcium 8.9 MG/DL (8.5-10.1); Osmolality,Calculated 286.4 MOS/KG (273-304); Potassium 4.2 MMOL/L (3.5-5.1)
[2017-08-16] MEDS: ALLOPURINOL 100 MG TABLET PO SCH (09:51)
[2017-08-16] MEDS: LISINOPRIL 20 MG TABLET PO SCH ×2 (09:51→20:49)
[2017-08-16] MEDS: amLODIPine 10 MG TABLET PO SCH (09:51)
[2017-08-16] MEDS: PANTOPRAZOLE 40 MG TABLET PO SCH (09:51)
[2017-08-16] MEDS: LEVOFLOXACIN INJ 750 MG in PREMIX 1 EACH IV SCH (09:52)
[2017-08-16] MEDS: ENOXAPARIN 40 MG/0.4 ML SYRINGE SUBCUT SCH (09:52)
[2017-08-16 11:16] LABS: Free T4 (Free Thyroxine) 1.43 NG/DL (0.76-1.46); Thyroid Stimulating Hormone 0.133 uIU/ml (0.358-3.74)
[2017-08-16] MEDS: AZITHROMYCIN INJ 500 MG in SODIUM CHLORIDE 0.9% 250 ML IV SCH (14:15)
[2017-08-16] MEDS: MONTELUKAST 10 MG TABLET PO SCH (20:49)
[2017-08-16] MEDS ORDERED: DILTIAZEM 60 MG TABLET PO SCH (21:00)
[2017-08-17] MEDS: ALBUTEROL 1.25 MG/3 ML NEB RESP TX SCH ×7 (00:02→23:10)
[2017-08-17] MEDS: DEXTROSE 5% NACL 0.9% 1,000 ML IV SCH (01:34)
[2017-08-17] MEDS: ENOXAPARIN 40 MG/0.4 ML SYRINGE SUBCUT SCH (10:28)
[2017-08-17] MEDS: PANTOPRAZOLE 40 MG TABLET PO SCH (10:29)
[2017-08-17] MEDS: DOCUSATE SODIUM 100 MG CAPSULE PO PRN (10:29)
[2017-08-17] MEDS: LISINOPRIL 20 MG TABLET PO SCH ×2 (10:29→21:44)
[2017-08-17] MEDS: ALLOPURINOL 100 MG TABLET PO SCH (10:30)
[2017-08-17] MEDS: LEVOFLOXACIN INJ 750 MG in PREMIX 1 EACH IV SCH (10:32)
[2017-08-17] MEDS: amLODIPine 10 MG TABLET PO SCH (10:32)
[2017-08-17] MEDS: methylPREDNISolone SOD SUC 40 MG/1 ML VIAL IV SCH ×2 (10:54→21:45)
[2017-08-17] MEDS: CARVEDILOL 12.5 MG TABLET PO SCH ×2 (12:18→17:37)
[2017-08-17] MEDS: BUDESONIDE/FORMOTEROL 160-4.5 INHALER 6 GM INH SCH ×2 (17:44→21:52)
[2017-08-17] MEDS: MONTELUKAST 10 MG TABLET PO SCH (21:44)
[2017-08-18] MEDS: ALBUTEROL 1.25 MG/3 ML NEB RESP TX SCH ×7 (03:00→23:06)
[2017-08-18] MEDS: CARVEDILOL 12.5 MG TABLET PO SCH ×2 (09:18→17:00)
[2017-08-18] MEDS: ENOXAPARIN 40 MG/0.4 ML SYRINGE SUBCUT SCH (09:19)
[2017-08-18] MEDS: LISINOPRIL 20 MG TABLET PO SCH ×2 (09:19→21:24)
[2017-08-18] MEDS: LEVOFLOXACIN INJ 750 MG in PREMIX 1 EACH IV SCH (09:19)
[2017-08-18] MEDS: amLODIPine 10 MG TABLET PO SCH (09:19)
[2017-08-18] MEDS: PANTOPRAZOLE 40 MG TABLET PO SCH (09:20)
[2017-08-18] MEDS: ALLOPURINOL 100 MG TABLET PO SCH (09:20)
[2017-08-18] MEDS: BUDESONIDE/FORMOTEROL 160-4.5 INHALER 6 GM INH SCH ×2 (10:46→21:24)
[2017-08-18] MEDS ORDERED: methylPREDNISolone SOD SUC 40 MG/1 ML VIAL IV SCH (21:00)
[2017-08-18] MEDS: MONTELUKAST 10 MG TABLET PO SCH (21:24)
[2017-08-19] MEDS: ALBUTEROL 1.25 MG/3 ML NEB RESP TX SCH ×2 (07:25→12:19)
[2017-08-19 08:35] VITALS: BP 149/83
[2017-08-19] MEDS ORDERED: LEVOFLOXACIN 500 MG TABLET PO SCH (09:00)
[2017-08-19] MEDS: ENOXAPARIN 40 MG/0.4 ML SYRINGE SUBCUT SCH (09:37)
[2017-08-19] MEDS: CARVEDILOL 12.5 MG TABLET PO SCH (09:37)
[2017-08-19] MEDS: amLODIPine 10 MG TABLET PO SCH (09:37)
[2017-08-19] MEDS: PANTOPRAZOLE 40 MG TABLET PO SCH (09:38)
[2017-08-19] MEDS: BUDESONIDE/FORMOTEROL 160-4.5 INHALER 6 GM INH SCH (09:38)
[2017-08-19] MEDS: predniSONE 20 MG TABLET PO SCH ×3 (09:38→10:25)
[2017-08-19] MEDS: LISINOPRIL 20 MG TABLET PO SCH (09:38)
[2017-08-19] MEDS: ALLOPURINOL 100 MG TABLET PO SCH (09:39)
== END 2017-08-19 13:00 | disposition home or self-care (01) | DRG 194 ==
LOC: N.ED 07:00 → N.EDINP 09:45 → SUATTDRO 09:45 → N.EDINP 10:39 → N.2E 10:48
PROVIDERS: ADMIT Internal Medicine Cardiovascular Disease; ATTEND Internal Medicine

== ENCOUNTER 2019-12-22 12:08 | Observation (INO) ==
[2019-12-22] MEDS ORDERED: ALBUTEROL/IPRATROPIUM 3 ML NEB RESP TX STA (13:04)
[2019-12-22] MEDS ORDERED: FUROSEMIDE 40 MG/4 ML VIAL IV STA (14:18)
[2019-12-22 14:26] LABS: Basophils % 0.2 % (0.0-0.8); Eosinophils # 0.1 10*3/uL (0.0-0.87); Hemoglobin 12.5 GM/DL (12.0-16.0); Immature Granulocytes % 0.4 %; Immature Granulocytes Absolute 0.02 #; Lymphocytes # 1.2 10*3/uL (1.4-4.0); Lymphocytes % 22.8 % (21.3-54.2); Mean Corpuscular HGB Conc 31.3 GM/DL (32-36); Mean Corpuscular Volume 92.8 FL (87-102); Mean Platelet Volume 12.6 FL (9.6-12.0); Monocytes % 9.6 % (1.7-12.7); Platelet Count 179 T/CUMM (130-400); Red Blood Count 4.31 MC/CUMM (3.8-5.5); White Blood Count 5.1 T/CUMM (4-12)
[2019-12-22 14:35] LABS: Calcium 9.2 MG/DL (8.5-10.1); Osmolality,Calculated 276.5 MOS/KG (273-304)
[2019-12-22] MEDS ORDERED: hydrALAZINE 20 MG/1 ML VIAL IV STA (15:18)
[2019-12-22] MEDS ORDERED: ONDANSETRON 4 MG/2 ML VIAL IV PRN (15:40)
[2019-12-22] MEDS ORDERED: MAGNESIUM SULF RIDER 2 GM in PREMIX 1 EACH IV PRN (15:40)
[2019-12-22] MEDS ORDERED: MAGNESIUM SULF RIDER 4 GM in PREMIX 1 EACH IV PRN (15:40)
[2019-12-22] MEDS: ENOXAPARIN 40 MG/0.4 ML SYRINGE SUBCUT SCH (16:40)
[2019-12-22] MEDS ORDERED: amLODIPine 5 MG TABLET PO ONE (17:12)
[2019-12-22] MEDS ORDERED: hydrALAZINE 20 MG/1 ML VIAL IV PRN (17:12)
[2019-12-22] MEDS: ALBUTEROL/IPRATROPIUM 3 ML NEB RESP TX SCH (19:52)
[2019-12-22] MEDS: ACETAMINOPHEN 325 MG TABLET PO PRN (21:25)
[2019-12-22] MEDS: BUDESONIDE/FORMOTEROL 160-4.5 INHALER 6 GM INH SCH (21:26)
[2019-12-22] MEDS: lisinopriL 20 MG TABLET PO SCH (21:26)
[2019-12-23] MEDS: ALBUTEROL/IPRATROPIUM 3 ML NEB RESP TX SCH ×4 (01:09→20:02)
[2019-12-23] MEDS: ACETAMINOPHEN 325 MG TABLET PO PRN ×3 (04:53→20:14)
[2019-12-23 06:56] LABS: Basophils % 0.2 % (0.0-0.8); Eosinophils % 0.9 % (0.00-10.9); Hematocrit 37.5 VOL% (35.7-47.0); Hemoglobin 11.6 GM/DL (12.0-16.0); Immature Granulocytes % 0.2 %; Immature Granulocytes Absolute 0.01 #; Lymphocytes # 1.2 10*3/uL (1.4-4.0); Lymphocytes % 27.2 % (21.3-54.2); Mean Corpuscular HGB Conc 30.9 GM/DL (32-36); Mean Corpuscular Volume 93.3 FL (87-102); Mean Platelet Volume 12.2 FL (9.6-12.0); Monocytes % 11.5 % (1.7-12.7); Platelet Count 154 T/CUMM (130-400); Red Blood Count 4.02 MC/CUMM (3.8-5.5); White Blood Count 4.3 T/CUMM (4-12)
[2019-12-23 07:26] LABS: Albumin 3.2 G/DL (3.4-5.0); Bilirubin,Total 1.4 MG/DL (0.2-1.0); Calcium 8.9 MG/DL (8.5-10.1); Osmolality,Calculated 280.3 MOS/KG (273-304); Total Protein 7.5 G/DL (6.4-8.3)
[2019-12-23] MEDS: lisinopriL 20 MG TABLET PO SCH ×2 (09:37→20:15)
[2019-12-23] MEDS: ASPIRIN CHEW 81 MG TABLET PO SCH (09:37)
[2019-12-23] MEDS: PANTOPRAZOLE 40 MG TABLET PO SCH (09:37)
[2019-12-23] MEDS: amLODIPine 10 MG TABLET PO SCH (09:37)
[2019-12-23] MEDS: FUROSEMIDE 40 MG/4 ML VIAL IV SCH ×2 (09:37→15:26)
[2019-12-23] MEDS: BUDESONIDE/FORMOTEROL 160-4.5 INHALER 6 GM INH SCH ×2 (09:38→20:15)
[2019-12-23] MEDS: POTASSIUM CHLORIDE 20 MEQ TABLET PO PRN ×3 (10:58→17:44)
[2019-12-23] MEDS: ENOXAPARIN 40 MG/0.4 ML SYRINGE SUBCUT SCH (15:27)
[2019-12-23] MEDS: carvediloL 3.125 MG TABLET PO SCH (20:15)
[2019-12-24] MEDS: ALBUTEROL/IPRATROPIUM 3 ML NEB RESP TX SCH ×2 (01:55→07:24)
[2019-12-24 06:49] LABS: Basophils % 0.5 % (0.0-0.8); Eosinophils # 0.1 10*3/uL (0.0-0.87); Eosinophils % 2.8 % (0.00-10.9); Hematocrit 38.7 VOL% (35.7-47.0); Hemoglobin 12.2 GM/DL (12.0-16.0); Immature Granulocytes % 0.2 %; Immature Granulocytes Absolute 0.01 #; Lymphocytes # 1.6 10*3/uL (1.4-4.0); Lymphocytes % 36.8 % (21.3-54.2); Mean Corpuscular HGB Conc 31.5 GM/DL (32-36); Mean Corpuscular Volume 92.4 FL (87-102); Mean Platelet Volume 12.3 FL (9.6-12.0); Monocytes % 11.1 % (1.7-12.7); Neutrophils % 48.6 % (38.7-73.9); Platelet Count 159 T/CUMM (130-400); Red Blood Count 4.19 MC/CUMM (3.8-5.5); Red Cell Distribution Width 13.1 % (9.3-17.3); White Blood Count 4.3 T/CUMM (4-12)
[2019-12-24 07:19] LABS: Calcium 9.1 MG/DL (8.5-10.1); Osmolality,Calculated 276.5 MOS/KG (273-304)
[2019-12-24] MEDS: ASPIRIN CHEW 81 MG TABLET PO SCH (08:19)
[2019-12-24] MEDS: carvediloL 3.125 MG TABLET PO SCH (08:19)
[2019-12-24] MEDS: amLODIPine 10 MG TABLET PO SCH (08:19)
[2019-12-24] MEDS: PANTOPRAZOLE 40 MG TABLET PO SCH (08:19)
[2019-12-24] MEDS: lisinopriL 20 MG TABLET PO SCH (08:19)
[2019-12-24] MEDS: BUDESONIDE/FORMOTEROL 160-4.5 INHALER 6 GM INH SCH (08:19)
[2019-12-24] MEDS ORDERED: FUROSEMIDE 20 MG TABLET PO SCH (09:00)
[2019-12-24 10:23] VITALS: BP 155/91
== END 2019-12-24 12:35 | disposition home or self-care (01) ==
LOC: N.EDINP 12:08 → N.ED 12:08 → SUATTDRO 16:08 → N.EDINP 16:57 → N.2E 17:10
PROVIDERS: ADMIT Internal Medicine; ATTEND Internal Medicine

== ENCOUNTER 2021-01-17 13:49 | Observation (INO) ==
[2021-01-17] MEDS ORDERED: methylPREDNISolone SOD SUC 125 MG/2 ML VIAL IV STA (14:04)
[2021-01-17] MEDS ORDERED: ALBUTEROL/IPRATROPIUM 3 ML NEB RESP TX STA (14:04)
[2021-01-17] MEDS ORDERED: FUROSEMIDE 100 MG/10 ML VIAL IV STA (14:59)
[2021-01-17 15:52] LABS: Basophils % 0.4 % (0.0-0.8); Eosinophils # 0.1 10*3/uL (0.0-0.87); Eosinophils % 1.8 % (0.00-10.9); Hematocrit 41.1 VOL% (35.7-47.0); Hemoglobin 12.9 GM/DL (12.0-16.0); Immature Granulocytes % 0.2 %; Immature Granulocytes Absolute 0.01 #; Lymphocytes % 21.3 % (21.3-54.2); Mean Corpuscular HGB Conc 31.4 GM/DL (32-36); Mean Corpuscular Volume 91.5 FL (87-102); Monocytes % 7.4 % (1.7-12.7); Neutrophils % 68.9 % (38.7-73.9); Platelet Count 164 T/CUMM (130-400); Red Blood Count 4.49 MC/CUMM (3.8-5.5); Red Cell Distribution Width 13.3 % (9.3-17.3); White Blood Count 4.9 T/CUMM (4-12)
[2021-01-17 16:12] LABS: Albumin 3.3 G/DL (3.4-5.0); Bilirubin,Total 0.8 MG/DL (0.2-1.0); Osmolality,Calculated 280.3 MOS/KG (273-304); Potassium 3.9 MMOL/L (3.5-5.1); Total Protein 7.9 G/DL (6.4-8.2)
[2021-01-17] MEDS ORDERED: hydrALAZINE 20 MG/1 ML VIAL IV STA (16:31)
[2021-01-17] MEDS ORDERED: DOCUSATE SODIUM 100 MG CAPSULE PO PRN (17:12)
[2021-01-17] MEDS ORDERED: DEXTROSE 50% 25 GM/50 ML VIAL IV PRN (17:12)
[2021-01-17] MEDS ORDERED: hydrALAZINE 20 MG/1 ML VIAL IV PRN ×2 (17:12→18:47)
[2021-01-17] MEDS ORDERED: GLUCAGON 1 MG VIAL IM PRN (17:12)
[2021-01-17] MEDS ORDERED: ONDANSETRON 4 MG/2 ML VIAL IV PRN (17:12)
[2021-01-17] MEDS ORDERED: PNEUMOCOCCAL VACCINE (23 VALENT) 0.5 ML VIAL IM ONE (19:11)
[2021-01-17] MEDS: ALBUTEROL 2.5 MG/3 ML NEB RESP TX SCH (19:20)
[2021-01-17] MEDS ORDERED: MORPHINE 4 MG/1 ML VIAL IV PRN (19:29)
[2021-01-17] MEDS: carvediloL 12.5 MG TABLET PO SCH (19:52)
[2021-01-17] MEDS: ENOXAPARIN 150 MG/ML SYRINGE SUBCUT SCH (20:01)
[2021-01-17] MEDS: lisinopriL 20 MG TABLET PO SCH (20:02)
[2021-01-18] MEDS: ALBUTEROL 2.5 MG/3 ML NEB RESP TX SCH ×4 (00:12→19:15)
[2021-01-18 05:02] LABS: Hematocrit 39.7 VOL% (35.7-47.0); Hemoglobin 12.7 GM/DL (12.0-16.0); Immature Granulocytes % 0.4 %; Immature Granulocytes Absolute 0.03 #; Lymphocytes # 0.8 10*3/uL (1.4-4.0); Lymphocytes % 11.3 % (21.3-54.2); Mean Platelet Volume 12.6 FL (9.6-12.0); Monocytes % 4.6 % (1.7-12.7); Neutrophils % 83.7 % (38.7-73.9); Platelet Count 169 T/CUMM (130-400); Red Blood Count 4.41 MC/CUMM (3.8-5.5); Red Cell Distribution Width 13.4 % (9.3-17.3)
[2021-01-18 05:36] LABS: Calcium 9.5 MG/DL (8.5-10.1); Osmolality,Calculated 277.7 MOS/KG (273-304); Potassium 4.4 MMOL/L (3.5-5.1); Risk Ratio 4.27; Thyroid Stimulating Hormone 0.402 uIU/ml (0.358-3.74); VLDL CHOLESTEROL 9.8 MG/DL
[2021-01-18] MEDS ORDERED: FUROSEMIDE 40 MG/4 ML VIAL IV SCH (08:00)
[2021-01-18] MEDS ORDERED: hydrALAZINE 20 MG/1 ML VIAL IV PRN ×2 (08:43→11:00)
[2021-01-18] MEDS: PANTOPRAZOLE 40 MG TABLET PO SCH (09:24)
[2021-01-18] MEDS: lisinopriL 20 MG TABLET PO SCH ×2 (09:24→20:59)
[2021-01-18] MEDS: ASPIRIN EC 81 MG TABLET PO SCH (09:24)
[2021-01-18] MEDS: ATORVASTATIN 40 MG TABLET PO SCH ×2 (09:24→20:58)
[2021-01-18] MEDS: carvediloL 12.5 MG TABLET PO SCH (09:24)
[2021-01-18] MEDS: ENOXAPARIN 150 MG/ML SYRINGE SUBCUT SCH (10:03)
[2021-01-18] MEDS: FUROSEMIDE 40 MG TABLET PO SCH (10:08)
[2021-01-18 17:05] LABS: Barbiturates Screen,Urine Negative (Negative); Benzodiazepines Screen,Urine Negative (Negative); Cannabinoid Screen,Urine Negative (Negative); Opiate Screen,Urine Positive (Negative); Phencyclidine Screen,Urine Negative (Negative)
[2021-01-18] MEDS ORDERED: ALBUTEROL 2.5 MG/3 ML NEB RESP TX SCH (19:00)
[2021-01-18] MEDS: NEBIVOLOL 10 MG TABLET PO SCH (20:58)
[2021-01-18] MEDS: ENOXAPARIN 40 MG/0.4 ML SYRINGE SUBCUT SCH (20:59)
[2021-01-18] MEDS ORDERED: ATORVASTATIN 20 MG TABLET PO SCH (21:00)
[2021-01-18] MEDS: BUDESONIDE/FORMOTEROL 160-4.5 INHALER 6 GM INH SCH (21:01)
[2021-01-19] MEDS: ALBUTEROL 2.5 MG/3 ML NEB RESP TX SCH ×4 (01:30→19:06)
[2021-01-19 05:39] LABS: Basophils % 0.3 % (0.0-0.8); Eosinophils % 0.7 % (0.00-10.9); Hematocrit 37.2 VOL% (35.7-47.0); Hemoglobin 11.8 GM/DL (12.0-16.0); Immature Granulocytes % 0.3 %; Immature Granulocytes Absolute 0.02 #; Lymphocytes % 33.3 % (21.3-54.2); Mean Corpuscular HGB Conc 31.7 GM/DL (32-36); Mean Corpuscular Volume 91.4 FL (87-102); Mean Platelet Volume 12.6 FL (9.6-12.0); Monocytes % 10.1 % (1.7-12.7); Neutrophils % 55.3 % (38.7-73.9); Platelet Count 167 T/CUMM (130-400); Red Blood Count 4.07 MC/CUMM (3.8-5.5)
[2021-01-19 06:14] LABS: Calcium 8.9 MG/DL (8.5-10.1); Osmolality,Calculated 278.7 MOS/KG (273-304)
[2021-01-19] MEDS ORDERED: FUROSEMIDE 40 MG TABLET PO SCH (09:00)
[2021-01-19] MEDS: ASPIRIN EC 81 MG TABLET PO SCH (09:20)
[2021-01-19] MEDS: lisinopriL 20 MG TABLET PO SCH ×2 (09:20→20:22)
[2021-01-19] MEDS: FUROSEMIDE 40 MG TABLET PO SCH (09:21)
[2021-01-19] MEDS: allopurinoL 300 MG TABLET PO SCH (09:21)
[2021-01-19] MEDS: PANTOPRAZOLE 40 MG TABLET PO SCH (09:21)
[2021-01-19] MEDS: amLODIPine 10 MG TABLET PO SCH (09:21)
[2021-01-19] MEDS: POTASSIUM CHLORIDE 20 MEQ TABLET PO SCH (09:21)
[2021-01-19] MEDS: BUDESONIDE/FORMOTEROL 160-4.5 INHALER 6 GM INH SCH ×2 (09:21→20:27)
[2021-01-19] MEDS: ATORVASTATIN 40 MG TABLET PO SCH (20:22)
[2021-01-19] MEDS: NEBIVOLOL 10 MG TABLET PO SCH (20:22)
[2021-01-19] MEDS: ENOXAPARIN 40 MG/0.4 ML SYRINGE SUBCUT SCH (20:22)
[2021-01-20] MEDS: ALBUTEROL 2.5 MG/3 ML NEB RESP TX SCH ×3 (00:15→14:31)
[2021-01-20 05:49] LABS: Basophils % 0.2 % (0.0-0.8); Eosinophils # 0.1 10*3/uL (0.0-0.87); Eosinophils % 2.4 % (0.00-10.9); Hematocrit 39.5 VOL% (35.7-47.0); Hemoglobin 12.2 GM/DL (12.0-16.0); Immature Granulocytes % 0.2 %; Immature Granulocytes Absolute 0.01 #; Lymphocytes # 1.5 10*3/uL (1.4-4.0); Lymphocytes % 27.2 % (21.3-54.2); Mean Corpuscular HGB Conc 30.9 GM/DL (32-36); Mean Corpuscular Volume 93.4 FL (87-102); Mean Platelet Volume 12.4 FL (9.6-12.0); Monocytes % 12.6 % (1.7-12.7); Neutrophils % 57.4 % (38.7-73.9); Platelet Count 158 T/CUMM (130-400); Red Blood Count 4.23 MC/CUMM (3.8-5.5); Red Cell Distribution Width 13.6 % (9.3-17.3); White Blood Count 5.5 T/CUMM (4-12)
[2021-01-20 06:09] LABS: Hypochromasia 1+; Microcytosis 1+; Osmolality,Calculated 279.5 MOS/KG (273-304); Ovalocytes Slight; Platelet Estimate Adequate
[2021-01-20] MEDS: lisinopriL 20 MG TABLET PO SCH (08:48)
[2021-01-20] MEDS: FUROSEMIDE 40 MG TABLET PO SCH (08:48)
[2021-01-20] MEDS: allopurinoL 300 MG TABLET PO SCH (08:48)
[2021-01-20] MEDS: ASPIRIN EC 81 MG TABLET PO SCH (08:48)
[2021-01-20] MEDS: amLODIPine 10 MG TABLET PO SCH (08:48)
[2021-01-20] MEDS: POTASSIUM CHLORIDE 20 MEQ TABLET PO SCH (08:48)
[2021-01-20] MEDS: PANTOPRAZOLE 40 MG TABLET PO SCH (08:48)
[2021-01-20] MEDS: BUDESONIDE/FORMOTEROL 160-4.5 INHALER 6 GM INH SCH (08:49)
[2021-01-20 13:44] VITALS: BP 167/82
== END 2021-01-20 14:44 | disposition home or self-care (01) ==
LOC: N.EDINP 13:49 → N.ED 13:49 → SUATTDRO 17:42 → N.TELES 18:22
PROVIDERS: ADMIT Emergency Medicine; ATTEND Internal Medicine

== ENCOUNTER 2021-02-14 05:40 | Observation (INO) ==
[2021-02-14] MEDS ORDERED: fentaNYL 100 MCG/2 ML VIAL ONE ×2 (06:18→09:14)
[2021-02-14] MEDS ORDERED: MIDAZOLAM 2 MG/2 ML VIAL ONE (06:19)
[2021-02-14] MEDS ORDERED: FAMOTIDINE 20 MG TABLET PO ONE (06:31)
[2021-02-14] MEDS ORDERED: DIAZEPAM 5 MG TABLET PO ONE (06:31)
[2021-02-14] MEDS ORDERED: ALBUTEROL 2.5 MG/3 ML NEB RESP TX ONE (06:31)
[2021-02-14] MEDS ORDERED: TISSUE ADHESIVE 1 EACH APPLICATOR TOP ONE (06:37)
[2021-02-14] MEDS ORDERED: BUPIVACAINE MPF 0.25% 30 ML VIAL ONE (06:37)
[2021-02-14] MEDS ORDERED: LIDOCAINE 1%/EPI INJ 20 ML VIAL ONE (06:37)
[2021-02-14] MEDS ORDERED: LACTATED RINGERS 1,000 ML IV SCH (07:00)
[2021-02-14] MEDS ORDERED: LIDOCAINE 2% 5 ML VIAL ONE (07:42)
[2021-02-14] MEDS ORDERED: propofoL 200 MG/20 ML VIAL IV ONE (07:42)
[2021-02-14] MEDS ORDERED: SUCCINYLCHOLINE 200 MG/10 ML VIAL ONE (07:42)
[2021-02-14] MEDS ORDERED: SEVOFLURANE 1 UNIT/15 MINUTE INH ONE ×10 (07:42→09:25)
[2021-02-14] MEDS ORDERED: ROCURONIUM 50 MG/5 ML VIAL IV ONE ×2 (07:42→09:04)
[2021-02-14] MEDS ORDERED: PHENYLEPHRINE 1 MG/10 ML SYRINGE IV ONE (07:42)
[2021-02-14] MEDS ORDERED: GLYCOPYRROLATE 0.4 MG/2 ML VIAL ONE (07:42)
[2021-02-14] MEDS ORDERED: ePHEDrine 50 MG/ML VIAL ONE (07:44)
[2021-02-14] MEDS ORDERED: ALBUMIN 5% 12.5 GM/250 ML VIAL IV ONE (07:48)
[2021-02-14] MEDS ORDERED: METOCLOPRAMIDE 10 MG/2 ML VIAL ONE (08:01)
[2021-02-14] MEDS ORDERED: ONDANSETRON 4 MG/2 ML VIAL ONE (08:01)
[2021-02-14] MEDS ORDERED: ACETAMINOPHEN INJ 1,000 MG/100 ML VIAL IV ONE (08:24)
[2021-02-14] MEDS ORDERED: LACTATED RINGERS 1,000 ML IV ONE (09:16)
[2021-02-14] MEDS ORDERED: SUGAMMADEX 200 MG/2 ML VIAL IV ONE (09:44)
[2021-02-14] MEDS ORDERED: LABETALOL 20 MG/4 ML SYRINGE IV ONE (09:51)
[2021-02-14] MEDS ORDERED: ONDANSETRON 4 MG/2 ML VIAL IV PRN ×2 (10:23→11:16)
[2021-02-14] MEDS: HYDROmorphone 2 MG/1 ML VIAL IV PRN ×5 (10:30→15:48)
[2021-02-14] MEDS ORDERED: PROMETHAZINE 25 MG/1 ML VIAL IM PRN (11:16)
[2021-02-14] MEDS ORDERED: hydrALAZINE 20 MG/1 ML VIAL IV PRN (12:36)
[2021-02-14] MEDS ORDERED: ALBUTEROL 2.5 MG/3 ML NEB RESP TX PRN (13:00)
[2021-02-14] MEDS ORDERED: DICLOFENAC SODIUM 50 MG TABLET PO PRN (17:00)
[2021-02-14] MEDS: ALBUTEROL 2.5 MG/3 ML NEB RESP TX SCH (19:45)
[2021-02-14] MEDS: lisinopriL 20 MG TABLET PO SCH (20:53)
[2021-02-14] MEDS: BUDESONIDE/FORMOTEROL 160-4.5 INHALER 6 GM INH SCH (20:57)
[2021-02-14] MEDS: NEBIVOLOL 10 MG TABLET PO SCH (20:57)
[2021-02-14] MEDS: ATORVASTATIN 40 MG TABLET PO SCH (20:58)
[2021-02-14] MEDS: LACTATED RINGERS 1,000 ML IV SCH (23:30)
[2021-02-15] MEDS: HYDROmorphone 2 MG/1 ML VIAL IV PRN (00:19)
[2021-02-15] MEDS: LACTATED RINGERS 1,000 ML IV SCH (01:13)
[2021-02-15] MEDS: ENOXAPARIN 40 MG/0.4 ML SYRINGE SUBCUT SCH (05:15)
[2021-02-15] MEDS: ALBUTEROL 2.5 MG/3 ML NEB RESP TX SCH ×2 (06:31→19:36)
[2021-02-15] MEDS: amLODIPine 10 MG TABLET PO SCH (09:23)
[2021-02-15] MEDS: lisinopriL 20 MG TABLET PO SCH ×2 (09:23→20:37)
[2021-02-15] MEDS: ASPIRIN EC 81 MG TABLET PO SCH (09:24)
[2021-02-15] MEDS: allopurinoL 300 MG TABLET PO SCH (09:24)
[2021-02-15] MEDS: POTASSIUM CHLORIDE 20 MEQ TABLET PO SCH (09:24)
[2021-02-15] MEDS: BUDESONIDE/FORMOTEROL 160-4.5 INHALER 6 GM INH SCH ×2 (09:24→20:27)
[2021-02-15] MEDS: FUROSEMIDE 40 MG TABLET PO SCH (09:24)
[2021-02-15 11:04] LABS: Calcium 8.8 MG/DL (8.5-10.1); Osmolality,Calculated 282.4 MOS/KG (273-304); Potassium 4.2 MMOL/L (3.5-5.1)
[2021-02-15] MEDS: NEBIVOLOL 10 MG TABLET PO SCH (20:37)
[2021-02-15] MEDS: ATORVASTATIN 40 MG TABLET PO SCH (20:37)
[2021-02-16] MEDS: ENOXAPARIN 40 MG/0.4 ML SYRINGE SUBCUT SCH (05:25)
[2021-02-16] MEDS: HYDROmorphone 2 MG/1 ML VIAL IV PRN ×2 (05:25→15:25)
[2021-02-16 06:07] LABS: Osmolality,Calculated 276.7 MOS/KG (273-304); Potassium 4.4 MMOL/L (3.5-5.1)
[2021-02-16] MEDS: ALBUTEROL 2.5 MG/3 ML NEB RESP TX SCH (06:50)
[2021-02-16] MEDS: amLODIPine 10 MG TABLET PO SCH (08:45)
[2021-02-16] MEDS: ASPIRIN EC 81 MG TABLET PO SCH (08:45)
[2021-02-16] MEDS: allopurinoL 300 MG TABLET PO SCH (08:45)
[2021-02-16] MEDS: POTASSIUM CHLORIDE 20 MEQ TABLET PO SCH (08:45)
[2021-02-16] MEDS: lisinopriL 20 MG TABLET PO SCH ×2 (08:46→20:46)
[2021-02-16] MEDS: FUROSEMIDE 40 MG TABLET PO SCH (08:47)
[2021-02-16] MEDS: BUDESONIDE/FORMOTEROL 160-4.5 INHALER 6 GM INH SCH ×2 (08:49→20:48)
[2021-02-16] MEDS: ALBUTEROL/IPRATROPIUM 3 ML NEB RESP TX SCH ×2 (13:54→19:23)
[2021-02-16] MEDS: ATORVASTATIN 40 MG TABLET PO SCH (20:47)
[2021-02-16] MEDS: NEBIVOLOL 10 MG TABLET PO SCH (20:47)
[2021-02-17] MEDS: ALBUTEROL/IPRATROPIUM 3 ML NEB RESP TX SCH ×2 (02:20→07:00)
[2021-02-17] MEDS: ENOXAPARIN 40 MG/0.4 ML SYRINGE SUBCUT SCH (04:20)
[2021-02-17] MEDS: ASPIRIN EC 81 MG TABLET PO SCH (10:25)
[2021-02-17] MEDS: lisinopriL 20 MG TABLET PO SCH (10:26)
[2021-02-17] MEDS: amLODIPine 10 MG TABLET PO SCH (10:26)
[2021-02-17] MEDS: allopurinoL 300 MG TABLET PO SCH (10:26)
[2021-02-17] MEDS: POTASSIUM CHLORIDE 20 MEQ TABLET PO SCH (10:26)
[2021-02-17] MEDS: BUDESONIDE/FORMOTEROL 160-4.5 INHALER 6 GM INH SCH (10:27)
[2021-02-17] MEDS: FUROSEMIDE 40 MG TABLET PO SCH (10:50)
[2021-02-17 16:26] VITALS: BP 141/78
== END 2021-02-17 16:47 | disposition home or self-care (01) ==
LOC: N.3E 05:40 → N.OR 05:40 → N.SDSINP 05:42 → N.3E 11:05
PROVIDERS: ADMIT Surgery; ATTEND Surgery

== ENCOUNTER 2022-03-09 07:44 | Inpatient (IN) ==
[2022-03-09] MEDS ORDERED: ALBUTEROL 2.5 MG/3 ML NEB RESP TX STA (08:15)
[2022-03-09 08:23] LABS: Basophils % 0.5 % (0.0-0.8); Eosinophils # 0.1 10*3/uL (0.0-0.87); Eosinophils % 1.7 % (0.00-10.9); Hematocrit 45.9 VOL% (35.7-47.0); Hemoglobin 14.8 GM/DL (12.0-16.0); Immature Granulocytes % 0.2 %; Immature Granulocytes Absolute 0.01 #; Lymphocytes # 1.6 10*3/uL (1.4-4.0); Lymphocytes % 38.6 % (21.3-54.2); Mean Corpuscular HGB Conc 32.2 GM/DL (32-36); Mean Platelet Volume 11.5 FL (9.6-12.0); Monocytes # 0.3 10*3/uL (0.11-0.8); Monocytes % 6.6 % (1.7-12.7); Neutrophils % 52.4 % (38.7-73.9); Platelet Count 178 T/CUMM (130-400); Red Blood Count 4.83 MC/CUMM (3.8-5.5); Red Cell Distribution Width 13.6 % (9.3-17.3); White Blood Count 4.1 T/CUMM (4-12)
[2022-03-09] MEDS ORDERED: niCARdipine INJ 25 MG in SODIUM CHLORIDE 0.9% 240 ML IV SCH (08:30)
[2022-03-09 08:46] LABS: Albumin 3.6 G/DL (3.4-5.0); Calcium 9.1 MG/DL (8.5-10.1); Osmolality,Calculated 285.1 MOS/KG (273-304); Potassium 3.9 MMOL/L (3.5-5.1); Total Protein 8.2 G/DL (6.4-8.2)
[2022-03-09 09:15] LABS: Bacteria,Urine Occasional /HPF (Few); Bilirubin,Urine Negative (Negative); Blood, Urine Negative (Negative); Glucose,Urine (UA) Negative (Negative); Ketones,Urine Negative (Negative); Mucus,Urine Occasional /LPF (Occasional); Nitrite,Urine Negative (Negative); Protein,Urine Trace mg/dL (Negative); Squamous Epithelial Cell,Urine Few /HPF (0-10); Transitional Epi Cells,Urine Occasional /HPF (<1); Urine Appearance Clear (Clear); Urine Color Yellow (Yellow); Urine pH 6.5 (4.5-8.0)
[2022-03-09 09:37] LABS: Barbiturates Screen,Urine Negative (Negative); Benzodiazepines Screen,Urine Negative (Negative); Cannabinoid Screen,Urine Negative (Negative); Opiate Screen,Urine Negative (Negative); Phencyclidine Screen,Urine Negative (Negative)
[2022-03-09] MEDS ORDERED: amLODIPine 5 MG TABLET PO STA (09:56)
[2022-03-09] MEDS ORDERED: lisinopriL 10 MG TABLET PO STA (09:56)
[2022-03-09] MEDS ORDERED: hydrALAZINE 20 MG/1 ML VIAL IV STA (09:56)
[2022-03-09] MEDS ORDERED: FUROSEMIDE 40 MG/4 ML VIAL IV STA (09:57)
[2022-03-09] MEDS ORDERED: hydrALAZINE 20 MG/1 ML VIAL IV PRN (09:58)
[2022-03-09] MEDS ORDERED: ACETAMINOPHEN 325 MG TABLET PO PRN (09:58)
[2022-03-09] MEDS ORDERED: ONDANSETRON 4 MG/2 ML VIAL IV PRN (09:58)
[2022-03-09] MEDS: NEBIVOLOL 10 MG TABLET PO SCH (10:32)
[2022-03-09] MEDS: ENOXAPARIN 40 MG/0.4 ML SYRINGE SUBCUT SCH (10:33)
[2022-03-09] MEDS ORDERED: ALBUTEROL 2.5 MG/3 ML NEB RESP TX SCH (11:00)
[2022-03-09] MEDS ORDERED: methylPREDNISolone SOD SUC 125 MG/2 ML VIAL IV ONE (11:21)
[2022-03-09] MEDS ORDERED: POTASSIUM CHLORIDE 20 MEQ TABLET PO ONE (11:26)
[2022-03-09] MEDS ORDERED: MAGNESIUM SULF RIDER 2 GM/50 ML PREMIX IV ONE (11:26)
[2022-03-09] MEDS: ALBUTEROL/IPRATROPIUM 3 ML NEB RESP TX SCH ×2 (11:48→19:01)
[2022-03-09] MEDS: BUDESONIDE/FORMOTEROL 160-4.5 INHALER 6 GM INH SCH (20:19)
[2022-03-09] MEDS: MONTELUKAST 10 MG TABLET PO SCH (20:19)
[2022-03-09] MEDS: ATORVASTATIN 40 MG TABLET PO SCH (20:19)
[2022-03-09] MEDS: lisinopriL 20 MG TABLET PO SCH (20:19)
[2022-03-10] MEDS: ALBUTEROL/IPRATROPIUM 3 ML NEB RESP TX SCH ×4 (00:12→18:57)
[2022-03-10 03:43] LABS: Basophils % 0.1 % (0.0-0.8); Hematocrit 44.7 VOL% (35.7-47.0); Hemoglobin 14.2 GM/DL (12.0-16.0); Immature Granulocytes % 0.3 %; Immature Granulocytes Absolute 0.02 #; Lymphocytes # 0.8 10*3/uL (1.4-4.0); Lymphocytes % 12.1 % (21.3-54.2); Mean Corpuscular HGB Conc 31.8 GM/DL (32-36); Mean Corpuscular Volume 95.3 FL (87-102); Mean Platelet Volume 11.8 FL (9.6-12.0); Monocytes # 0.3 10*3/uL (0.11-0.8); Monocytes % 4.5 % (1.7-12.7); Platelet Count 177 T/CUMM (130-400); Red Blood Count 4.69 MC/CUMM (3.8-5.5); Red Cell Distribution Width 13.6 % (9.3-17.3); White Blood Count 6.7 T/CUMM (4-12)
[2022-03-10 03:59] LABS: Calcium 9.7 MG/DL (8.5-10.1); Osmolality,Calculated 278.8 MOS/KG (273-304)
[2022-03-10] MEDS: LEVOTHYROXINE 100 MCG TABLET PO SCH (06:06)
[2022-03-10] MEDS: amLODIPine 10 MG TABLET PO SCH (08:21)
[2022-03-10] MEDS: NEBIVOLOL 10 MG TABLET PO SCH (08:21)
[2022-03-10] MEDS: CETIRIZINE 10 MG TABLET PO SCH (08:22)
[2022-03-10] MEDS: lisinopriL 20 MG TABLET PO SCH ×2 (08:22→20:39)
[2022-03-10] MEDS: COLCHICINE 0.6 MG CAPSULE PO SCH (08:22)
[2022-03-10] MEDS: BUDESONIDE/FORMOTEROL 160-4.5 INHALER 6 GM INH SCH ×2 (08:22→20:40)
[2022-03-10] MEDS ORDERED: PANTOPRAZOLE 40 MG TABLET PO SCH (09:00)
[2022-03-10] MEDS: FLUTICASONE 50 MCG NASAL SPRAY 16 GM BOTTLE BOTH NARES SCH (09:08)
[2022-03-10] MEDS: ENOXAPARIN 40 MG/0.4 ML SYRINGE SUBCUT SCH (09:08)
[2022-03-10] MEDS ORDERED: DEXTROSE 10% 250 ML BAG IV PRN (13:02)
[2022-03-10] MEDS ORDERED: GLUCAGON 1 MG VIAL IM PRN (13:02)
[2022-03-10] MEDS ORDERED: FUROSEMIDE 40 MG TABLET PO ONE (13:29)
[2022-03-10] MEDS ORDERED: methylPREDNISolone SOD SUC 40 MG/1 ML VIAL IV SCH ×2 (13:30)
[2022-03-10] MEDS: ATORVASTATIN 40 MG TABLET PO SCH (20:39)
[2022-03-10] MEDS: MONTELUKAST 10 MG TABLET PO SCH (20:39)
[2022-03-11] MEDS: ALBUTEROL/IPRATROPIUM 3 ML NEB RESP TX SCH ×2 (01:12→07:45)
[2022-03-11] MEDS: LEVOTHYROXINE 100 MCG TABLET PO SCH (05:31)
[2022-03-11 05:42] LABS: Basophils % 0.1 % (0.0-0.8); Hemoglobin 13.7 GM/DL (12.0-16.0); Immature Granulocytes % 0.5 %; Immature Granulocytes Absolute 0.04 #; Lymphocytes # 1.3 10*3/uL (1.4-4.0); Lymphocytes % 16.9 % (21.3-54.2); Mean Corpuscular HGB Conc 31.9 GM/DL (32-36); Mean Corpuscular Volume 96.2 FL (87-102); Mean Platelet Volume 12.3 FL (9.6-12.0); Monocytes # 0.5 10*3/uL (0.11-0.8); Monocytes % 6.1 % (1.7-12.7); Neutrophils % 76.4 % (38.7-73.9); Platelet Count 187 T/CUMM (130-400); Red Blood Count 4.47 MC/CUMM (3.8-5.5); Red Cell Distribution Width 13.8 % (9.3-17.3); White Blood Count 7.9 T/CUMM (4-12)
[2022-03-11 05:56] LABS: Calcium 9.5 MG/DL (8.5-10.1); Osmolality,Calculated 283.8 MOS/KG (273-304); Potassium 4.2 MMOL/L (3.5-5.1)
[2022-03-11] MEDS ORDERED: methylPREDNISolone SOD SUC 40 MG/1 ML VIAL IV SCH (08:00)
[2022-03-11] MEDS ORDERED: FLUTICASONE 50 MCG NASAL SPRAY 16 GM BOTTLE BOTH NARES SCH (09:00)
[2022-03-11] MEDS ORDERED: FUROSEMIDE 40 MG TABLET PO SCH (09:00)
[2022-03-11] MEDS: NEBIVOLOL 10 MG TABLET PO SCH (09:31)
[2022-03-11] MEDS: CETIRIZINE 10 MG TABLET PO SCH (09:31)
[2022-03-11] MEDS: COLCHICINE 0.6 MG CAPSULE PO SCH (09:31)
[2022-03-11] MEDS: amLODIPine 10 MG TABLET PO SCH (09:31)
[2022-03-11] MEDS: ENOXAPARIN 40 MG/0.4 ML SYRINGE SUBCUT SCH (09:32)
[2022-03-11] MEDS: BUDESONIDE/FORMOTEROL 160-4.5 INHALER 6 GM INH SCH (09:32)
[2022-03-11] MEDS: FLUTICASONE 50 MCG NASAL SPRAY 16 GM BOTTLE BOTH NARES SCH (09:37)
[2022-03-11 12:05] VITALS: BP 148/82
== END 2022-03-11 14:18 | disposition home or self-care (01) | DRG 202 ==
LOC: N.ED 07:44 → SUATTDRO 09:58 → N.ICU 09:58 → N.5E 03-10 15:06
PROVIDERS: ADMIT Family Medicine; ATTEND Internal Medicine